=== PATIENT | female | born 1945 | race Caucasian/White ===

== ENCOUNTER 2017-02-01 14:57 | Observation (INO) | payer MEDICARE, OTHER ==
[~2017-02-01] VITALS: Ht 165.1 cm; Wt 89.0 kg
[2017-02-01] VITALS (8 sets, daily range): BP systolic 136–194; BP diastolic 66–89; PULSE 70–96; RESP 16–24; TEMP 98–98.4; O2SAT 95–98
[~2017-02-01 14:57] MED LIST: ALRE0.2S3 EACH EYE; ASPI81TA5 PO; AZEL0.05 EACH EYE; CALC1TAB34 PO; CLON0.5T PO; DETR2CAP PO; DETR2TAB PO; DOCU100T9 PO; EPIP0.3I IM; FEXO180T PO; FLUTI44I INH; HYDR200T3 PO; LEVO-168 PO; MECL-62 PO; MONT10TA2 PO; MONT10TA4 PO; OMEG1400 PO; OMNASPR2 EACH NARE; PROB1TAB PO; REST0.05 EACH EYE; ROSU5 PO; SPIRCAP INH; TELM1TAB2 PO; TIZA2TAB PO; VERA1CAP PO; XOPEAER4 INH; ZOSTINJ SQ
--- NOTE | 2017-02-01 15:28 | PD ---
HPI Chief Complaint: GI Complaint Time Seen by Provider: 15:27 Travel History International Travel<30 days: No Contact w/Intl Traveler<30days: No Traveled to known affect area: No History of Present Illness HPI 71 year-old female's history of CAD, hypertension, diabetes, lupus, peptic ulcer disease, IBS, presents to the department for evaluation of two episodes of venita red diarrhea. Patient states that she has history of IBS and does gap , pain and cramping sometimes. She has never been diagnosed with colitis or diverticulitis. She states that she felt like she had to go and when she had diarrhea and was veinta bloody red. She began to feel weak. She states she still feels weak. Denies any recent illnesses, fever, chills. Mild nausea. No urinary symptoms. No other symptoms to report. PFSH Past Medical History Arthritis: Yes Asthma: Yes (ENVIRONMENTAL) Autoimmune Disease: Yes (LUPUS) Heart Rhythm Problems: Yes (murmur) Cardiovascular Problems: Yes (HTN) High Cholesterol: Yes (controlled) Chest Pain: No Congestive Heart Failure: No Cerebrovascular Accident: No Fibromyalgia: Yes GERD: Yes Genitourinary: Yes (bilat renal bipsy) Hiatal Hernia: No Hypertension: Yes Kidney Stones: No Musculoskeletal: Yes (fibromyalgia) Neurologic: Yes Reproductive: No Respiratory: Yes (ASTHMA) Migraines: Yes (hx of, migraine free 10 years ago) Renal Failure: No Seizures: No Sleep Apnea: Yes (no cpap) Thyroid Disease: Yes Ulcer: Yes ?: Not Past Surgical History Abdominal Surgery: No Cardiac Surgery: No Ear Surgery: No Endocrine Surgery: No Eye Surgery: Yes (CATARACT) Genitourinary Surgery: Yes (RENAL BIOPSY) Gynecologic Surgery: No Oral Surgery: Yes (uvula removed, and sinus) Thoracic Surgery: No Tonsillectomy: Yes Other Surgery: Yes (DEVIATED SEPTUM) Social History Alcohol Use: No Tobacco Use: No Substance Use: No Allergies-Medications (Allergen,Severity, Reaction): Coded Allergies: adhesive (Unverified Allergy, Unknown, 02/01/17) codeine (Unverified Allergy, Unknown, 02/01/17) meperidine (Unverified Allergy, Unknown, 02/01/17) methylene blue (Unverified Allergy, Unknown, 02/01/17) morphine (Unverified Allergy, Unknown, 02/01/17) penicillin G (Unverified Allergy, Unknown, 02/01/17) povidone-iodine (Unverified Allergy, Unknown, 02/01/17) Reported Meds & Prescriptions Reported Meds & Active Scripts Active Verelan PM 24 HR (Verapamil HCl) 200 Mg Cap 200 Mg PO DAILY Omnaris Nasal (Ciclesonide Nasal) 50 Mcg/Act [place] 2 [place] EACH NARE DAILY 2 sprays into each nostril Crestor (Rosuvastatin Calcium) 5 Mg Tab 5 Mg PO DAILY Levothyroxine (Levothyroxine Sodium) 112 Mcg Tab 112 Mcg PO DAILY Alrex Opth Drops (Loteprednol Etabonate) 0.2 % Soln 1 Drop EACH EYE BID Detrol LA (Tolterodine Tartrate) 2 Mg Cap 2 Mg PO DAILY Telmisartan 80 Mg Tab 80 Mg PO DAILY Tizanidine (Tizanidine HCl) 2 Mg Tab 2 Mg PO HS PRN Meclizine (Meclizine HCl) 25 Mg Tab 25 Mg PO TID PRN Xopenex Hfa 15 GM Inh (Levalbuterol 15 GM Inh) 45 Mcg/Act Aer 45 Mcg INH Q6HR Shake well before using. (1 puff = 45 mcg) Flovent Hfa 10.6 GM Inh (Fluticasone Propionate) 44 Mcg/Act Inh 2 Puff INH BID Use daily at the same time. Clonazepam 0.5 Mg Tab 0.5 Mg PO DAILY PRN Reported Caltrate 600+D Plus Minerals (Calcium Carbonate-Vitamin D W/Minerals) 600-800 Mg -Unit Tab 1 Tab PO HS Aspirin DR (Aspirin) 81 Mg Tabdr 81 Mg PO DAILY Epipen 2-Tristan Inj (Epinephrine) 0.3 Mg/0.3 Ml Pfpen 0.3 Mg IM ONCE PRN Azelastine Opth Drops 0.05% Soln 1 Drop EACH EYE DAILY Singulair (Montelukast Sodium) 10 Mg Tab 10 Mg PO HS Spiriva Handihaler (Tiotropium Inh) 18 Mcg Cap 18 Mcg INH DAILY 1 capsule = 18 mcg Hydroxychloroquine (Hydroxychloroquine Sulfate) 200 Mg Tab 200 Mg PO BID Takw with food Probiotic (Probiotic Product) 1 Tab Tab 1 Tab PO DAILY [place]-3 1400 mg ([place]-3 Fatty Acids) 1 Cap Cap 1,400 Mg PO DAILY Fexofenadine (Fexofenadine HCl) 180 Mg Tab 180 Mg PO DAILY Docusate Sodium 100 Mg Tab 200 Mg PO DAILY Restasis Opth 0.05% (Cyclosporine Opth 0.05%) 0.05% Emul 1 Drop EACH EYE BID Review of Systems Except as stated in HPI: all other systems reviewed are Neg Physical Exam Narrative GENERAL: Well-nourished elderly female patient, in no acute distress SKIN: Focused skin assessment warm/dry. HEAD: Atraumatic. Normocephalic. EYES: Pupils equal and round. No scleral icterus. No injection or drainage. ENT: No nasal bleeding or discharge. Mucous membranes pink and moist. NECK: Trachea midline. No JVD. CARDIOVASCULAR: Tachycardic rate and rhythm. 2/6 systolic murmur appreciated. RESPIRATORY: No accessory muscle use. Clear to auscultation. Breath sounds equal bilaterally. GASTROINTESTINAL: Abdomen soft, nondistended. Tenderness to palpation across the lower abdomen. Greater on the left than right. Hepatic and splenic margins not palpable. MUSCULOSKELETAL: No obvious deformities. No clubbing. No cyanosis. No edema. NEUROLOGICAL: Awake and alert. No obvious cranial nerve deficits. Motor grossly within normal limits. Normal speech. PSYCHIATRIC: Appropriate mood and affect; insight and judgment normal. Data Data Last Documented VS Vital Signs Date Time Temp Pulse Resp B/P Pulse Ox O2 Delivery O2 Flow Rate FiO2 02/01/17 18:07 76 20 194/80 97 02/01/17 15:34 Room Air 02/01/17 15:00 98.4 Orders Complete Blood Count With Diff (02/01/17 15:34) Comprehensive Metabolic Panel (02/01/17 15:34) Prothrombin Time / Inr (Pt) (02/01/17 15:34) Act Partial Throm Time (Ptt) (02/01/17 15:34) Urinalysis - C+S If Indicated (02/01/17 15:34) Type And Screen (02/01/17 15:34) Chest, Single Ap (02/01/17 15:34) Ecg Monitoring (02/01/17 15:34) Iv Access Insert/Monitor (02/01/17 15:34) Oximetry (02/01/17 15:34) Pantoprazole Inj (Protonix Inj) (02/01/17 15:45) Sodium Chloride 0.9% Flush (Ns Flush) (02/01/17 15:45) Ct Abd/Pel W Iv Contrast(Rout) (02/01/17 ) Iohexol 350 Inj (Omnipaque 350 Inj) (02/01/17 17:00) Admit Order (Ed Use Only) (02/01/17 18:15) Labs Laboratory Tests Test 02/01/17 02/01/17 15:48 16:10 White Blood Count 13.2 TH/MM3 Red Blood Count 4.32 MIL/MM3 Hemoglobin 13.1 GM/DL Hematocrit 38.5 % Mean Corpuscular Volume 89.0 FL Mean Corpuscular Hemoglobin 30.2 PG Mean Corpuscular Hemoglobin 34.0 % Concent Red Cell Distribution Width 13.2 % Platelet Count 189 TH/MM3 Mean Platelet Volume 8.2 FL Neutrophils (%) (Auto) 84.6 % Lymphocytes (%) (Auto) 8.1 % Monocytes (%) (Auto) 6.6 % Eosinophils (%) (Auto) 0.4 % Basophils (%) (Auto) 0.3 % Neutrophils # (Auto) 11.1 TH/MM3 Lymphocytes # (Auto) 1.1 TH/MM3 Monocytes # (Auto) 0.9 TH/MM3 Eosinophils # (Auto) 0.1 TH/MM3 Basophils # (Auto) 0.0 TH/MM3 CBC Comment DIFF FINAL Differential Comment Prothrombin Time 10.3 SEC Prothromb Time International 0.9 RATIO Ratio Activated Partial 25.9 SEC Thromboplast Time Sodium Level 141 MEQ/L Potassium Level 4.3 MEQ/L Chloride Level 105 MEQ/L Carbon Dioxide Level 27.5 MEQ/L Anion Gap 9 MEQ/L Blood Urea Nitrogen 22 MG/DL Creatinine 1.08 MG/DL Estimat Glomerular Filtration 50 ML/MIN Rate Random Glucose 91 MG/DL Calcium Level 9.3 MG/DL Total Bilirubin 0.3 MG/DL Aspartate Amino Transf 15 U/L (AST/SGOT) Alanine Aminotransferase 22 U/L (ALT/SGPT) Alkaline Phosphatase 113 U/L Total Protein 7.0 GM/DL Albumin 3.4 GM/DL Blood Type B POSITIVE Antibody Screen NEGATIVE Urine Color YELLOW Urine Turbidity CLEAR Urine pH 5.5 Urine Specific [place] 1.017 Urine Protein TRACE mg/dL Urine Glucose (UA) NEG mg/dL Urine Ketones NEG mg/dL Urine Occult Blood SMALL Urine Nitrite NEG Urine Bilirubin NEG Urine Urobilinogen LESS THAN 2.0 MG/DL Urine Leukocyte Esterase TRACE Urine RBC 4 /hpf Urine WBC 6 /hpf Urine Squamous Epithelial <1 /hpf Cells Urine Mucus FEW /lpf Microscopic Urinalysis Comment CULT NOT INDICATED MDM Medical Decision Making Medical Screen Exam Complete: Yes Emergency Medical Condition: Yes Medical Record Reviewed: Yes Differential Diagnosis GI bleed versus colitis versus diverticulitis versus hypercoagulopathy Narrative Course 70 year-old female presents to emergency department for evaluation of venita red bloody diarrhea. Patient appears without distress. She states she does not feel well. She is slightly pallor. Elevated heart rate is noted. Patient does have an crit stool on examination. This is Hemoccult positive. Laboratory Tests Test 02/01/17 02/01/17 15:48 16:10 White Blood Count 13.2 TH/MM3 Red Blood Count 4.32 MIL/MM3 Hemoglobin 13.1 GM/DL Hematocrit 38.5 % Mean Corpuscular Volume 89.0 FL Mean Corpuscular Hemoglobin 30.2 PG Mean Corpuscular Hemoglobin 34.0 % Concent Red Cell Distribution Width 13.2 % Platelet Count 189 TH/MM3 Mean Platelet Volume 8.2 FL Neutrophils (%) (Auto) 84.6 % Lymphocytes (%) (Auto) 8.1 % Monocytes (%) (Auto) 6.6 % Eosinophils (%) (Auto) 0.4 % Basophils (%) (Auto) 0.3 % Neutrophils # (Auto) 11.1 TH/MM3 Lymphocytes # (Auto) 1.1 TH/MM3 Monocytes # (Auto) 0.9 TH/MM3 Eosinophils # (Auto) 0.1 TH/MM3 Basophils # (Auto) 0.0 TH/MM3 CBC Comment DIFF FINAL Differential Comment Prothrombin Time 10.3 SEC Prothromb Time International 0.9 RATIO Ratio Activated Partial 25.9 SEC Thromboplast Time Sodium Level 141 MEQ/L Potassium Level 4.3 MEQ/L Chloride Level 105 MEQ/L Carbon Dioxide Level 27.5 MEQ/L Anion Gap 9 MEQ/L Blood Urea Nitrogen 22 MG/DL Creatinine 1.08 MG/DL Estimat Glomerular Filtration 50 ML/MIN Rate Random Glucose 91 MG/DL Calcium Level 9.3 MG/DL Total Bilirubin 0.3 MG/DL Aspartate Amino Transf 15 U/L (AST/SGOT) Alanine Aminotransferase 22 U/L (ALT/SGPT) Alkaline Phosphatase 113 U/L Total Protein 7.0 GM/DL Albumin 3.4 GM/DL Blood Type B POSITIVE Antibody Screen NEGATIVE Urine Color YELLOW Urine Turbidity CLEAR Urine pH 5.5 Urine Specific [place] 1.017 Urine Protein TRACE mg/dL Urine Glucose (UA) NEG mg/dL Urine Ketones NEG mg/dL Urine Occult Blood SMALL Urine Nitrite NEG Urine Bilirubin NEG Urine Urobilinogen LESS THAN 2.0 MG/DL Urine Leukocyte Esterase TRACE Urine RBC 4 /hpf Urine WBC 6 /hpf Urine Squamous Epithelial <1 /hpf Cells Urine Mucus FEW /lpf Microscopic Urinalysis Comment CULT NOT INDICATED Lab work is without acute concern. After IV fluids, patient's heart rate has normalized. She still does not feel well. She feels weak. I feel it is in her best benefit to be admitted observation for serial H&H and further evaluation of these symptoms as rendered. Plan as discussed the patient. She is in agreement with this plan of care. Diagnosis Primary Impression: Hematochezia Admitting Information Admitting Physician Requests: Observation Condition: Stable Celi Pierson Feb 01, 2017 15:28
[2017-02-01] MEDS ORDERED: PANTOPRAZOLE SODIUM 40 MG VIAL IVP ONE (15:45)
[2017-02-01] MEDS ORDERED: SODIUM CHLORIDE 0.9% FLUSH 10 ML FLUSH IVF PRN (15:45)
[2017-02-01 16:05] LABS: AUTOMATED NEUTROPHIL # 11.1 TH/MM3 (1.8-7.7); BASOPHIL % 0.3 % (0.0-2.0); EOSINOPHIL # 0.1 TH/MM3 (0-0.4); EOSINOPHIL % 0.4 % (0.0-4.0); HEMATOCRIT 38.5 % (35.0-46.0); HEMO FLAGS DIFF FINAL; LYMPH % 8.1 % (9.0-44.0); LYMPHOCYTE # 1.1 TH/MM3 (1.0-4.8); MEAN CORPUSCULAR HEMOGLOBIN 30.2 PG (27.0-34.0); MONO % 6.6 % (0.0-8.0); NEUT % 84.6 % (16.0-70.0); PLATELET COUNT 189 TH/MM3 (150-450); RED BLOOD COUNT 4.32 MIL/MM3 (4.00-5.30); RED CELL DISTRIBUTION WIDTH 13.2 % (11.6-17.2); WHITE BLOOD COUNT 13.2 TH/MM3 (4.0-11.0)
--- NOTE | 2017-02-01 16:07 | RADRPT ---
EXAM DATE/TIME: 02/01/2017 15:56 [facility] COMPARISON: CHEST SINGLE AP, May 29, 2015, 16:11. INDICATIONS : Abdominal pain, diarrhea, weakness. MEDICAL HISTORY : Irritable bowel syndrome. Asthma SURGICAL HISTORY : None. ENCOUNTER: Initial ACUITY: 2 days PAIN SCORE: 0/10 LOCATION: Bilateral chest FINDINGS: A single view of the chest demonstrates the lungs to be symmetrically aerated without evidence of mas s, infiltrate or effusion. The cardiomediastinal contours are unremarkable. Osseous structures are intact. CONCLUSION: No acute disease. Raman Tracy Jr., MD on February 01, 2017 at 16:04 Board Certified Radiologist. This report was verified electronically.
[2017-02-01 16:17] LABS: APTT (PATIENT) 25.9 SEC (24.3-30.1); INTERNATIONAL NORMALIZED RATIO 0.9 RATIO; PROTHROMBIN TIME - PATIENT 10.3 SEC (9.8-11.6)
[2017-02-01 16:21] LABS: ALT (GPT) 22 U/L (10-53); ANION GAP 9 MEQ/L (5-15); AST (GOT) 15 U/L (15-37); BICARBONATE 27.5 MEQ/L (21.0-32.0); BLOOD UREA NITROGEN 22 MG/DL (7-18); CHLORIDE 105 MEQ/L (98-107); GLOMERULAR FILTRATION RATE 50 ML/MIN (>89); POTASSIUM 4.3 MEQ/L (3.5-5.1); SODIUM (NA) 141 MEQ/L (136-145)
[2017-02-01 16:23] LABS: ALKALINE PHOSPHATASE 113 U/L (45-117); TOTAL BILIRUBIN ADULT 0.3 MG/DL (0.2-1.0)
[2017-02-01] MEDS ORDERED: IOHEXOL 350 MG/ML 10 ML VIAL (for RAD DIAG) IV ONE (17:00)
--- NOTE | 2017-02-01 17:08 | RADRPT ---
EXAM DATE/TIME: 02/01/2017 16:52 [facility] COMPARISON: No previous studies available for comparison. INDICATIONS : Lower gi bleed. Pain across abdomen. IV CONTRAST: 95 cc Omnipaque 300 (iohexol) IV ORAL CONTRAST: No oral contrast ingested. RADIATION DOSE: 13.28 CTDIvol (mGy) MEDICAL HISTORY : Cardiovascular disease. Hypertension. Lupus.Diabetes,Liver disease. SURGICAL HISTORY : None. ENCOUNTER: Initial ACUITY: 1 day PAIN SCALE: 4/10 LOCATION: Bilateral abdominal. TECHNIQUE: Volumetric scanning of the abdomen and pelvis was performed. Using automated exposure control and ad justment of the mA and/or kV according to patient size, radiation dose was kept as low as reasonably achievable to obtain optimal diagnostic quality images. DICOM format image data is available electro nically for review and comparison. FINDINGS: LOWER LUNGS: The visualized lower lungs are clear. LIVER: Homogeneous density without lesion. There is no dilation of the biliary tree. No calcified gallston es. SPLEEN: Normal size without lesion. PANCREAS: Within normal limits. KIDNEYS: Normal in size and shape. There is no mass, stone or hydronephrosis. ADRENAL GLANDS: Within normal limits. VASCULAR: There is no aortic aneurysm. BOWEL/MESENTERY: Is mild gaseous distention in portions of the transverse colon with moderate amount of stool present. There is no focal wall thickening or inflammatory change. There is a normal appendix and terminal il eum appears unremarkable.. There is no free intraperitoneal air or fluid. ABDOMINAL WALL: Within normal limits. RETROPERITONEUM: There is no lymphadenopathy. BLADDER: No wall thickening or mass. REPRODUCTIVE: Within normal limits. INGUINAL: There is no lymphadenopathy or hernia. MUSCULOSKELETAL: Within normal limits for patient age. CONCLUSION: 1. Nonspecific, nonobstructive bowel gas pattern which may represent mild ileus. 2. Unremarkable gallbladder. 3. Mild hepatic steatosis. Mikael Lomeli MD on February 01, 2017 at 17:04 Board Certified Radiologist. This report was verified electronically.
[2017-02-01 17:11] LABS: BLOOD, URINE SMALL (NEG); COMMENT (UR) CULT NOT INDICATED; CULTURE IF INDICATED CULT NOT INDICATED; GLUCOSE,URINE NEG (NEG); KETONE, URINE NEG (NEG); MUCUS URINE FEW /lpf (OCC); NITRITE,URINE NEG (NEG); PH, URINE 5.5 (5.0-8.5); SQUAMOUS EPITHELIAL CELL URINE <1 /hpf (0-5); URINE COLOR YELLOW (YELLW/STRAW)
[2017-02-01] MEDS ORDERED: SODIUM CHLORIDE 0.9% FLUSH 10 ML FLUSH IV FLUSH PRN ×2 (18:45→20:30)
--- NOTE | 2017-02-01 19:42 | HHI.HP ---
[facility] Service Family Medicine Primary Care Physician Patsy Darnell MD Admission Diagnosis Acute hematachezia; Abdominal cramping Diagnoses: International Travel<30 Days: No Contact w/Intl Traveler<30days: No Known Affected Area: No History of Present Illness Mrs. Ware is a 71-year-old female with a extensive past medical history presenting to the emergency department after one episode of bright red blood per rectum. She reports that she has been previously diagnosed with irritable bowel syndrome, diarrhea type, that "flared up" this morning around 0330. She states that the cramps associated with the diarrhea or so severe that she felt like she was going to "black out." She states that the abdominal pain is very sharp in nature located primarily in the lower 2 quadrants and scores the pain and 8/10 the pain scale. Over the course of the morning she had 3 total episodes of diarrhea ranging from initially semisolid to the last episode with all liquid diarrhea. Shortly after the last episode at around 1430 she had one episode of medium thickness bright red blood per rectum that covered the entire toilet measuring approximately a cup per patient report. She also states that there were a "couple of blood clots." Since that time she became dizzy and was off balance. She has not been able to tolerate a diet today as she also endorses nausea. She reports no sick contacts at this time. She takes a daily aspirin, however she takes no other anticoagulants. She has been told she has a small internal hemorrhoid that she reports does not bother her. She is also urinary incontinent at baseline and is required to wear briefs at most times. Otherwise she has no complaints and denies any fevers, chills, shortness of breath, chest pain, or calf tenderness. (Eugenio Storey MD R2) Review of Systems Constitutional: COMPLAINS OF: Dizziness, DENIES: Fever Eyes: DENIES: Blurred vision, Double Vision Ears, nose, mouth, throat: COMPLAINS OF: Running Nose, DENIES: Throat pain Respiratory: DENIES: Cough, Shortness of breath Cardiovascular: DENIES: Chest pain, Lower Extremity Edema Gastrointestinal: COMPLAINS OF: Abdominal pain, Bloody stools, Diarrhea, Nausea , DENIES: Constipation, Vomiting Genitourinary: DENIES: Abnormal vaginal bleeding, Dysuria Musculoskeletal: COMPLAINS OF: Joint pain Integumentary: DENIES: Rash Hematologic/lymphatic: DENIES: Lymphadenopathy Neurologic: DENIES: Headache Psychiatric: DENIES: Mood changes (Eugenio Storey MD R2) Past Family Social History Past Medical History Lupus with nephritis Fibromyalgia Osteoarthritis Irritable Bowel Syndrome Heart Murmur HTN Prediabetic Asthma Retinal Detachment Past Surgical History Sleep Apnea Surgery Deviated Septum Kidney biopsy BL Tonsillectomy Cataract (Eugenio Storey MD R2) Allergies: Coded Allergies: adhesive (Unverified Allergy, Unknown, 02/01/17) codeine (Unverified Allergy, Unknown, 02/01/17) meperidine (Unverified Allergy, Unknown, 02/01/17) methylene blue (Unverified Allergy, Unknown, 02/01/17) morphine (Unverified Allergy, Unknown, 02/01/17) penicillin G (Unverified Allergy, Unknown, 02/01/17) povidone-iodine (Unverified Allergy, Unknown, 02/01/17) Family History Father - from lung cancer Mother - from GI cancer, HTN, Hypothyroid Brother - lymphoma Sister - MS Sister - allergies Son - Health Social History Lives at home with in [place]. Previously on disability, now on SS. Tobacco - denies history Alcohol - denies history Illicit Drug - denies history (Eugenio Storey MD R2) Physical Exam Vital Signs Vital Signs Date Time Temp Pulse Resp B/P Pulse Ox O2 Delivery O2 Flow Rate FiO2 02/01/17 19:17 70 20 176/70 98 Room Air 02/01/17 18:07 76 20 194/80 97 02/01/17 15:45 24 98 02/01/17 15:34 86 24 184/88 97 Room Air 02/01/17 15:29 20 02/01/17 15:00 98.4 96 16 194/89 98 Physical Exam GENERAL: Well-nourished, well-developed elderly female lying in bed in mild distress. SKIN: Warm and dry. No rash. Patient appears pale. HEENT: Atraumatic, normocephalic with EOMI. PERRLA. Mucous membranes dry. Oropharynx clear without erythema or exudate. Bilateral eyes mildly sunken. No LAD, JVD, or thyroid abnormality appreciated. CARDIOVASCULAR: Regular rate and rhythm without obvious murmurs, gallops, or rubs. RESPIRATORY: Clear to auscultation bilaterally with no CRW. No increased work of breathing. GASTROINTESTINAL: Abdomen soft, nondistended with tenderness diffusely in all 4 quadrants. Pain to palpation is primarily focused in the lower 2 quadrants. Hyperactive bowel sounds in all 4 quadrants. No masses or hepatosplenomegaly appreciated. MUSCULOSKELETAL: No cyanosis or edema. Strength grossly WNL. UG: Rectum with erythema and irritation at the anus. Upon examination 1 small internal hemorrhoid appreciated without visualized bleeding. Hemoccult positive per ER staff. BACK: Nontender without obvious deformity. No CVA tenderness. NEURO/PSYCH: Afocal. Awake, alert, and oriented x3. Normal judgment and speech. Normal interaction with examiner Laboratory Laboratory Tests Test 02/01/17 02/01/17 15:48 16:10 White Blood Count 13.2 Red Blood Count 4.32 Hemoglobin 13.1 Hematocrit 38.5 Mean Corpuscular Volume 89.0 Mean Corpuscular Hemoglobin 30.2 Mean Corpuscular Hemoglobin 34.0 Concent Red Cell Distribution Width 13.2 Platelet Count 189 Mean Platelet Volume 8.2 Neutrophils (%) (Auto) 84.6 Lymphocytes (%) (Auto) 8.1 Monocytes (%) (Auto) 6.6 Eosinophils (%) (Auto) 0.4 Basophils (%) (Auto) 0.3 Neutrophils # (Auto) 11.1 Lymphocytes # (Auto) 1.1 Monocytes # (Auto) 0.9 Eosinophils # (Auto) 0.1 Basophils # (Auto) 0.0 CBC Comment DIFF FINAL Differential Comment Prothrombin Time 10.3 Prothromb Time International 0.9 Ratio Activated Partial 25.9 Thromboplast Time Sodium Level 141 Potassium Level 4.3 Chloride Level 105 Carbon Dioxide Level 27.5 Anion Gap 9 Blood Urea Nitrogen 22 Creatinine 1.08 Estimat Glomerular Filtration 50 Rate Random Glucose 91 Calcium Level 9.3 Total Bilirubin 0.3 Aspartate Amino Transf 15 (AST/SGOT) Alanine Aminotransferase 22 (ALT/SGPT) Alkaline Phosphatase 113 Total Protein 7.0 Albumin 3.4 Blood Type B POSITIVE Antibody Screen NEGATIVE Urine Color YELLOW Urine Turbidity CLEAR Urine pH 5.5 Urine Specific [place] 1.017 Urine Protein TRACE Urine Glucose (UA) NEG Urine Ketones NEG Urine Occult Blood SMALL Urine Nitrite NEG Urine Bilirubin NEG Urine Urobilinogen LESS THAN 2.0 Urine Leukocyte Esterase TRACE Urine RBC 4 Urine WBC 6 Urine Squamous Epithelial <1 Cells Urine Mucus FEW Microscopic Urinalysis Comment CULT NOT INDICATED (Eugenio Storey MD R2) Result Diagram: 02/01/17 1548 02/01/17 1548 Assessment and Plan Assessment and Plan Mrs. Ware is a 71-year-old female with a extensive past medical history presenting to the emergency department after one episode of bright red blood per rectum. Code Status Full Code Discussed Condition With Mrs. Pierson, ER PA (Eugenio Storey MD R2) Attending Attestation Patient seen and examined. Case reviewed and discussed Please refer to resident H&P for further details regarding HPI, ROS, PMH, SurgHx , Fh and SocHx In summary, patient is a 71yoF presenting with abdominal pain and BRBPR She is seen in her hospital bed, denies further bleeding overnight c/o pain over lower abdomen GENERAL: wdwn female, NAD resting in bed SKIN: Warm and dry. No rashes HEAD: Normocephalic. AT EYES: No scleral icterus. No injection or drainage. ENT: OP clear. MM slightly dry NECK: Supple, trachea midline. No JVD or lymphadenopathy. CARDIOVASCULAR: Regular rate and rhythm with 3/6 AIDA, no audible gallops or rubs. RESPIRATORY: Breath sounds equal and clear bilaterally. No accessory muscle use. GASTROINTESTINAL: Abdomen soft, nondistended. TTP over suprapubic and bilateral lower quadrants, no rebound, no guarding MUSCULOSKELETAL: No cyanosis, or edema. No calf tenderness BACK: Nontender without obvious deformity. No CVA tenderness. NEURO: Awake and alert. Normal speech. MAEW. CN gorossly intact. A/P: 71yoF admitted with: Hematochezia Abdominal pain FH colon or anal CA SLE with Lupus nephritis Fibromyalgia Osteoarthritis Irritable Bowel Syndrome, diarrhea predominant Heart Murmur Prediabetic Asthma Retinal Detachment Colon polyps GERD- omeprazole Hx RONY Aortic stenosis HTN NPO GI consultation Serial hgb Protonix Resume home meds as appropriate Monitor for bleeding Chemical DVT proph contraindicated due to bleeding Patient seen and examined. Case reviewed and discussed Agree with plan of care as discussed with me and documented in the resident note. (Debbie Riggins MD) Problem List: (1) Hematochezia Status: Acute Plan: Patient with IBS presenting with 3 episodes of liquid diarrhea and 1 episode of bright red blood per rectum Abdomen and pelvis CT: Nonspecific, nonobstructive bowel gas pattern which may represent mild ileus. Unremarkable gallbladder. Mild hepatic steatosis. CBC: WBC 13.2, H/H 13.1/38.5, platelets 189 Serial H/H every 6 hours pending BMP: Creatinine 1.08, BUN 22, otherwise within normal limits Nothing by mouth except for medications Defer stool studies at this time as patient denies sick contacts, has remained afebrile, patient does not meet sepsis criteria, and stool has semisolid quality Consult gastroenterology for possible colonoscopy, appreciate recommendations Medications: Protonix 40 mg IV twice a day Zofran 4 mg IV every 6 hours when necessary for nausea/vomiting Normal saline at 125 mL per hour (2) Diarrhea Status: Acute Plan: Please see plan as above (3) GERD (gastroesophageal reflux disease) Status: Chronic Plan: Patient with history of gastroesophageal reflux disease Protonix 40 mg IV twice a day (4) Hypertension Status: Chronic Plan: Patient with chronic hypertension Continue home losartan Clonidine 0.1 mg every 6 hours when necessary for blood pressure greater than 180/100 (5) Asthma Status: Chronic Plan: Patient with history of asthma and allergies Continue home Singulair, loratadine, and fluticasone Albuterol when necessary for shortness of breath (6) Hypothyroid Status: Chronic Plan: Patient with history of hypothyroidism Continue home levothyroxine 112 g daily (7) Lupus (systemic lupus erythematosus) Status: Chronic Plan: Patient with history of lupus Continue hydroxychloroquine 200 mg twice a day (8) Fibromyalgia Status: Chronic Plan: Patient with a history of fibromyalgia Continue home Zanaflex (9) Nutrition, metabolism, and development symptoms Status: Acute Plan: Diet: Nothing by mouth except for medications Electrolytes: Within normal limits, continue to monitor Fluids: Normal saline at 129 mL per hour (10) Contraindication to deep vein thrombosis (DVT) prophylaxis Status: Acute Plan: Defer pharmacological DVT prophylaxis as this time due to episode of bright red blood per rectum SCD/TEDs (Eugenio Storey MD R2) Problem Qualifiers (1) GERD (gastroesophageal reflux disease): Qualified Code: K21.9 - Gastroesophageal reflux disease without esophagitis Eugenio Storey MD R2 Feb 01, 2017 19:42 Debbie Riggins MD Feb 02, 2017 16:12
[2017-02-01] MEDS ORDERED: MECLIZINE HCL 25 MG TAB PO PRN (20:15)
[2017-02-01] MEDS ORDERED: clonazePAM 0.5 MG TAB PO PRN (20:15)
[2017-02-01] MEDS ORDERED: ONDANSETRON HCL 4 MG/2 ML VIAL IV PRN (20:30)
[2017-02-01] MEDS ORDERED: Cyclosporine Opth 0.05% (Restasis Opth 0.05%) 1 DROP EACH EYE SCH (21:00)
[2017-02-01] MEDS: SODIUM CHLORIDE 0.9% FLUSH 10 ML FLUSH IV FLUSH SCH (21:00)
[2017-02-01] MEDS: HYDROXYCHLOROQUINE SULFATE 200 MG TAB PO SCH (21:00)
[2017-02-01] MEDS: PANTOPRAZOLE SODIUM 40 MG VIAL IV SCH (21:00)
[2017-02-01] MEDS ORDERED: SODIUM CHLORIDE 0.9% FLUSH 10 ML FLUSH IV FLUSH SCH (21:00)
[2017-02-01] MEDS: MONTELUKAST SODIUM 10 MG TAB PO SCH (21:00)
[2017-02-01] MEDS: CALCIUM/VITAMIN D 250 MG/125 U TAB PO SCH (21:00)
[2017-02-01] MEDS: cloNIDine HCL 0.1 MG TAB PO PRN (21:03)
[2017-02-01] MEDS: SODIUM CHLOR 0.9% 1000 ML INJ 1,000 ML IV SCH (21:09)
[2017-02-02] VITALS (7 sets, daily range): BP systolic 127–158; BP diastolic 61–76; PULSE 60–78; RESP 17–20; TEMP 97.5–98.2; O2SAT 95–98
[2017-02-02 03:54] LABS: AUTOMATED NEUTROPHIL # 6.7 TH/MM3 (1.8-7.7); BASOPHIL % 0.5 % (0.0-2.0); EOSINOPHIL # 0.1 TH/MM3 (0-0.4); EOSINOPHIL % 0.9 % (0.0-4.0); HEMATOCRIT 36.5 % (35.0-46.0); HEMO FLAGS DIFF FINAL; LYMPH % 16.9 % (9.0-44.0); LYMPHOCYTE # 1.6 TH/MM3 (1.0-4.8); MEAN CELL VOLUME 90.5 FL (80.0-100.0); MEAN CORPUSCULAR HEMOGLOBIN 29.1 PG (27.0-34.0); MEAN CORPUSCULAR HGB CONC 32.2 % (32.0-36.0); MONO % 9.4 % (0.0-8.0); NEUT % 72.3 % (16.0-70.0); PLATELET COUNT 176 TH/MM3 (150-450); RED BLOOD COUNT 4.04 MIL/MM3 (4.00-5.30); RED CELL DISTRIBUTION WIDTH 13.3 % (11.6-17.2); WHITE BLOOD COUNT 9.2 TH/MM3 (4.0-11.0)
[2017-02-02] MEDS: SODIUM CHLOR 0.9% 1000 ML INJ 1,000 ML IV SCH ×3 (04:02→19:34)
[2017-02-02] MEDS: LEVOTHYROXINE SODIUM 112 MCG TAB PO SCH (06:00)
--- NOTE | 2017-02-02 06:19 | HHI.FPPN ---
Subjective Remarks Patient reports that on Saturday at 0330 she had diffuse cramping abdominal pain, followed by several bouts of diarrhea. Her BMs eventually became gross bloody and soaking through the toilet. This is new for her. She denies NSAIDs, new medications (except for Plaquenil), dark tarry stools, fevers, chills, sick contacts, chest pain, SOB, palpitations, headaches. Denies feeling lightheaded currently. Denies any foul tasting foods. (Mann Forman MD, R3) Objective Vitals Vital Signs Date Time Temp Pulse Resp B/P Pulse Ox O2 Delivery O2 Flow Rate FiO2 02/02/17 03:34 97.9 72 17 130/62 96 02/02/17 01:23 98.0 73 17 127/61 95 02/01/17 21:57 98.0 74 18 136/66 95 02/01/17 21:26 74 20 170/71 97 Room Air 02/01/17 20:41 184/74 02/01/17 19:17 70 20 176/70 98 Room Air 02/01/17 18:07 76 20 194/80 97 02/01/17 15:45 24 98 02/01/17 15:34 86 24 184/88 97 Room Air 02/01/17 15:29 20 02/01/17 15:00 98.4 96 16 194/89 98 (Mann Forman MD, R3) Result Diagram: 02/02/17 0322 02/02/17 0322 Imaging Last 72 hours Impressions Chest X-Ray 02/01/17 1534 Signed Impressions: Service Date/Time: Wednesday, February 01, 2017 15:56 - CONCLUSION: No acute disease. Raman Tracy Jr., MD Abdomen/Pelvis CT 02/01/17 0000 Signed Impressions: Service Date/Time: Wednesday, February 01, 2017 16:52 - CONCLUSION: 1. Nonspecific , nonobstructive bowel gas pattern which may represent mild ileus. 2. Unremarkable gallbladder. 3. Mild hepatic steatosis. Mikael Lomeli MD Objective Remarks GEN: NAD resting HEENT: PERRL, throat without erythema or exudates, uvula midline RESP: CTAB CV: 3/6 AIDA at left sternal border, pulses equal EXT: No calf tenderness, 5/5 strength throughout ABD: ND TTP in suprapubic area. BS hypoactive. (Mann Forman MD, R3) A/P Assessment and Plan 71 y/o female with PMHx of external hemorrhoids, IBS, RA, aortic stenosis, COPD , presenting with bright red blood in her stools since Thursday 02/01 at 0330. Hgb on admission was 13.1 --> 11.7 within 12 hours. (Mann Forman MD, R3) Attending Attestation Patient seen and examined. Case reviewed and discussed Agree with plan of care as discussed with me and documented in the resident note. Appreciate GI recs CLD today, NPO after MN for scope tomorrow. (Debbie Riggins MD) Problem List: (1) Hematochezia Status: Acute Plan: IV PPI 40 mg BID IVF at 130 ml/hr Monitor vitals q 4 hours Serial H&H Consult GI we appreciate their recommendations Stool studies including c diff (2) Fibromyalgia Status: Chronic Plan: Continue home medications (3) GERD (gastroesophageal reflux disease) Status: Chronic Plan: PPI as above. (4) Hypertension Status: Chronic Plan: BP 130/62 this AM. Cont with clonidine BP > 180 Losartan 100 mg daily. (5) Asthma Status: Chronic Plan: Continue singulair albuterol nebs q 2 hrs prn sob Flovent 2 puffs bid (6) Hypothyroid Status: Chronic Plan: TSH in 10/2015 was 1.74 - continue with home levothyroxine Recheck TSH (7) Lupus (systemic lupus erythematosus) Status: Chronic Plan: Continue with Plaquenil May be better alternative medication if having persistent diarrhea / GI distress (8) Nutrition, metabolism, and development symptoms Status: Acute Plan: Diet: NPO after midnight for possible colonoscopy / scope IVF: as above Pain: Well controlled. DVT ppx: Contraindicated 2/2 GI bleed GI ppx: as above wdw Dr. Riggins. will follow up GI recs. (Mann Forman MD, R3) Problem Qualifiers (1) GERD (gastroesophageal reflux disease): Qualified Code: K21.9 - Gastroesophageal reflux disease without esophagitis Mann Forman MD, R3 Feb 02, 2017 06:19 Debbie Riggins MD Feb 02, 2017 15:59
[2017-02-02] MEDS ORDERED: RESP: ALBUTEROL 2.5 MG/3 ML NEB (PRN) INH (06:45)
[2017-02-02] MEDS: FLUTICASONE PROPIONATE 44 MCG/ACT 10.6 GM INHALER INH SCH ×3 (07:19→21:36)
[2017-02-02] MEDS ORDERED: AZELASTINE EACH EYE SCH (09:00)
--- NOTE | 2017-02-02 09:21 | PD.CONS ---
HPI History of Present Illness This is a 71 year old with a history of irritable bowel syndrome, diarrhea predominant. She does not take any medications for this on a regular basis. She began having some mild lower abdominal cramping, consistent with her prior episodes of irritable bowel syndrome. She had roasted turkey, stuffing, and mashed potatoes for dinner because she can usually tolerate this when she is having her "stomach issues." She went to bed and woke up early Conor morning with severe lower abdominal cramping and the urge to move her bowels. She reports that she had several episodes of loose stool. She went back to bed and then had the sudden urge to move her bowels again around 3:30 am, but when she went to the restroom, she noticed that she passed a large amount of red blood mixed with blood clots. She only had the one episode and has not had any further episodes of bleeding or diarrhea. She has never had GI bleeding in the past. She has associated severe lower abdominal cramping that seemed to improve after having bowel movements, but not completely resolve. She has nausea without vomiting. Last night, she felt dizzy after the episode of bleeding, but states she sat down before she passed out. Prior to this episode , her appetite has been good. She has been losing a few lbs a week, but with diet and activity. She has GERD, which is well controlled with omeprazole. She denies any recent travel, suspicious food, sick contacts, or recent antibiotics. Her last EGD/Colonoscopy was about 5 years ago in [place]. She did have benign polyps on her last colonoscopy. Her mother from either anal or colon cancer. (Blossom Marin) PFSH Past Medical History Lupus with nephritis Fibromyalgia Osteoarthritis Irritable Bowel Syndrome, diarrhea predominant Heart Murmur HTN Prediabetic Asthma Retinal Detachment Colon polyps GERD- omeprazole Hx RONY Aortic stenosis Past Surgical History Sleep Apnea Surgery Deviated Septum Kidney biopsy Tonsillectomy Cataract EGD/Colonoscopy (Blossom Marin) Coded Allergies: adhesive (Unverified Allergy, Unknown, 02/01/17) codeine (Unverified Allergy, Unknown, 02/01/17) meperidine (Unverified Allergy, Unknown, 02/01/17) methylene blue (Unverified Allergy, Unknown, 02/01/17) morphine (Unverified Allergy, Unknown, 02/01/17) penicillin G (Unverified Allergy, Unknown, 02/01/17) povidone-iodine (Unverified Allergy, Unknown, 02/01/17) Medications Allergies Coded Allergies Type Severity Reaction Last Updated Verified adhesive Allergy Unknown 02/01/17 No codeine Allergy Unknown 02/01/17 No meperidine Allergy Unknown 02/01/17 No methylene blue Allergy Unknown 02/01/17 No morphine Allergy Unknown 02/01/17 No penicillin G Allergy Unknown 02/01/17 No povidone-iodine Allergy Unknown 02/01/17 No Active Scripts Medications Dose Route/Sig Days Date Category Dose Instructions Verelan PM 24 HR (Verapamil HCl) 200 Mg Cap 200 Mg PO DAILY 01/29/17 Rx Omnaris Nasal (Ciclesonide Nasal) 50 Mcg/Act [place] 2 [place] EACH NARE DAILY 01/29/17 Rx 2 sprays into each nostril Crestor (Rosuvastatin Calcium) 5 Mg Tab 5 Mg PO DAILY 01/29/17 Rx Levothyroxine (Levothyroxine Sodium) 112 Mcg Tab 112 Mcg PO DAILY 01/29/17 Rx Caltrate 600+D Plus Minerals (Calcium Carbonate-Vitamin D W/Minerals) 600-800 Mg-Unit Tab 1 Tab PO HS 12/03/[address] (Aspirin) 81 Mg Tabdr 81 Mg PO DAILY 12/03/16 Reported Alrex Opth Drops (Loteprednol Etabonate) 0.2 % Soln 1 Drop EACH EYE BID 11/13/16 Rx Detrol LA (Tolterodine Tartrate) 2 Mg Cap 2 Mg PO DAILY 11/13/16 Rx Telmisartan 80 Mg Tab 80 Mg PO DAILY 10/27/16 Rx Tizanidine (Tizanidine HCl) 2 Mg Tab 2 Mg PO HS PRN 10/27/16 Rx Epipen 2-Tristan Inj (Epinephrine) 0.3 Mg/0.3 Ml Pfpen 0.3 Mg IM ONCE PRN 10/23/16 Reported Azelastine Opth Drops 0.05% Soln 1 Drop EACH EYE DAILY 10/23/16 Reported Singulair (Montelukast Sodium) 10 Mg Tab 10 Mg PO HS 10/23/16 Reported Spiriva Handihaler (Tiotropium Inh) 18 Mcg Cap 18 Mcg INH DAILY 10/23/16 Reported 1 capsule = 18 mcg Hydroxychloroquine (Hydroxychloroquine Sulfate) 200 Mg Tab 200 Mg PO BID 10/15/16 Reported Takw with food Meclizine (Meclizine HCl) 25 Mg Tab 25 Mg PO TID PRN 10/15/16 Rx Xopenex Hfa 15 GM Inh (Levalbuterol 15 GM Inh) 45 Mcg/Act Aer 45 Mcg INH Q6HR 05/01/16 Rx Shake well before using. (1 puff = 45 mcg) Flovent Hfa 10.6 GM Inh (Fluticasone Propionate) 44 Mcg/Act Inh 2 Puff INH BID 05/01/16 Rx Use daily at the same time. Clonazepam 0.5 Mg Tab 0.5 Mg PO DAILY PRN 05/01/16 Rx Probiotic (Probiotic Product) 1 Tab Tab 1 Tab PO DAILY 04/30/16 Reported [place]-3 1400 mg ([place]-3 Fatty Acids) 1 Cap Cap 1,400 Mg PO DAILY 04/30/16 Reported Fexofenadine (Fexofenadine HCl) 180 Mg Tab 180 Mg PO DAILY 04/30/16 Reported Docusate Sodium 100 Mg Tab 200 Mg PO DAILY 04/30/16 Reported Restasis Opth 0.05% (Cyclosporine Opth 0.05%) 0.05% Emul 1 Drop EACH EYE BID 04/30/16 Reported Family History Father from lung cancer Mother from either anal or colon cancer, HTN, Hypothyroid Brother lymphoma Sister MS Social History Denies tobacco, etoh, or illicit drug use (Blossom Marin) Review of Systems Constitutional: COMPLAINS OF: Diaphoretic episodes, Fatigue, Weight loss ( planned), Dizziness, DENIES: Fever, Chills, Change in appetite Respiratory: DENIES: Cough Cardiovascular: DENIES: Chest pain Gastrointestinal: COMPLAINS OF: Abdominal pain, Bloody stools, Diarrhea, Nausea , Heartburn, DENIES: Black stools, Constipation, Vomiting, Swelling of Abdomen , Hematemesis Genitourinary: COMPLAINS OF: Urinary incontinence, Hematuria (microscopic) Musculoskeletal: COMPLAINS OF: Joint pain Integumentary: DENIES: Abnormal pigmentation Neurologic: DENIES: Headache Psychiatric: DENIES: Confusion (Blossom Marin) GI Exam Vitals I&O Vital Signs Date Time Temp Pulse Resp B/P Pulse Ox O2 Delivery O2 Flow Rate FiO2 02/02/17 08:24 98.0 68 18 125/60 96 129/69 129/69 02/02/17 06:20 21 02/02/17 03:34 97.9 72 17 130/62 96 02/02/17 01:23 98.0 73 17 127/61 95 02/01/17 21:57 98.0 74 18 136/66 95 02/01/17 21:26 74 20 170/71 97 Room Air 02/01/17 20:41 184/74 02/01/17 19:17 70 20 176/70 98 Room Air 02/01/17 18:07 76 20 194/80 97 02/01/17 15:45 24 98 02/01/17 15:34 86 24 184/88 97 Room Air 02/01/17 15:29 20 02/01/17 15:00 98.4 96 16 194/89 98 Imaging Last Impressions Chest X-Ray 02/01/17 1534 Signed Impressions: Service Date/Time: Wednesday, February 01, 2017 15:56 - CONCLUSION: No acute disease. Raman Tracy Jr., MD Abdomen/Pelvis CT 02/01/17 0000 Signed Impressions: Service Date/Time: Wednesday, February 01, 2017 16:52 - CONCLUSION: 1. Nonspecific , nonobstructive bowel gas pattern which may represent mild ileus. 2. Unremarkable gallbladder. 3. Mild hepatic steatosis. Mikael Lomeli MD Laboratory Test 02/01/17 02/01/17 02/02/17 15:48 16:10 03:22 White Blood Count 13.2 TH/MM3 9.2 TH/MM3 Red Blood Count 4.32 MIL/MM3 4.04 MIL/MM3 Hemoglobin 13.1 GM/DL 11.7 GM/DL Hematocrit 38.5 % 36.5 % Mean Corpuscular Volume 89.0 FL 90.5 FL Mean Corpuscular Hemoglobin 30.2 PG 29.1 PG Mean Corpuscular Hemoglobin 34.0 % 32.2 % Concent Red Cell Distribution Width 13.2 % 13.3 % Platelet Count 189 TH/MM3 176 TH/MM3 Mean Platelet Volume 8.2 FL 7.8 FL Neutrophils (%) (Auto) 84.6 % 72.3 % Lymphocytes (%) (Auto) 8.1 % 16.9 % Monocytes (%) (Auto) 6.6 % 9.4 % Eosinophils (%) (Auto) 0.4 % 0.9 % Basophils (%) (Auto) 0.3 % 0.5 % Neutrophils # (Auto) 11.1 TH/MM3 6.7 TH/MM3 Lymphocytes # (Auto) 1.1 TH/MM3 1.6 TH/MM3 Monocytes # (Auto) 0.9 TH/MM3 0.9 TH/MM3 Eosinophils # (Auto) 0.1 TH/MM3 0.1 TH/MM3 Basophils # (Auto) 0.0 TH/MM3 0.0 TH/MM3 CBC Comment DIFF FINAL DIFF FINAL Differential Comment Prothrombin Time 10.3 SEC Prothromb Time International 0.9 RATIO Ratio Activated Partial 25.9 SEC Thromboplast Time Sodium Level 141 MEQ/L 144 MEQ/L Potassium Level 4.3 MEQ/L 4.0 MEQ/L Chloride Level 105 MEQ/L 110 MEQ/L Carbon Dioxide Level 27.5 MEQ/L 28.0 MEQ/L Anion Gap 9 MEQ/L 6 MEQ/L Blood Urea Nitrogen 22 MG/DL 17 MG/DL Creatinine 1.08 MG/DL 0.90 MG/DL Estimat Glomerular Filtration 50 ML/MIN 62 ML/MIN Rate Random Glucose 91 MG/DL 100 MG/DL Calcium Level 9.3 MG/DL 8.9 MG/DL Total Bilirubin 0.3 MG/DL Aspartate Amino Transf 15 U/L (AST/SGOT) Alanine Aminotransferase 22 U/L (ALT/SGPT) Alkaline Phosphatase 113 U/L Total Protein 7.0 GM/DL Albumin 3.4 GM/DL Blood Type B POSITIVE Antibody Screen NEGATIVE Urine Color YELLOW Urine Turbidity CLEAR Urine pH 5.5 Urine Specific [place] 1.017 Urine Protein TRACE mg/dL Urine Glucose (UA) NEG mg/dL Urine Ketones NEG mg/dL Urine Occult Blood SMALL Urine Nitrite NEG Urine Bilirubin NEG Urine Urobilinogen LESS THAN 2.0 MG/DL Urine Leukocyte Esterase TRACE Urine RBC 4 /hpf Urine WBC 6 /hpf Urine Squamous Epithelial <1 /hpf Cells Urine Mucus FEW /lpf Microscopic Urinalysis Comment CULT NOT INDICATED Physical Examination HEENT: Normocephalic; atraumatic; no jaundice. CHEST: CTA CARDIAC: RRR, Systolic heart murmur ABDOMEN: Soft, nondistended, mild lower abdominal tenderness; no hepatosplenomegaly; bowel sounds are present in all four quadrants. EXTREMITIES: No clubbing, cyanosis, or edema. SKIN: Normal; no rash; no jaundice. SOFTWARE QA MANAGER: No focal deficits; alert and oriented times three. (Blossom Marin) Assessment and Plan Plan ASSESSMENT: - Rectal bleeding. Pt woke up with severe lower abdominal cramping and diarrhea consistent with her IBS flares. After several episodes had one episode of passing large amount of red blood mixed with blood clots yest. at 330pm. No further episodes. No recent travel, suspicious food, sick contacts. Last egd/colonoscopy 5 years ago in [place], GERD and benign polyps. Mother from either anal or colon cancer. HH 11.7/36.5. States she cannot have colonoscopy Saturday, as she has to take her to MT appointment in [place]. Will prep today for egd/colonoscopy tomorrow. - Abdominal pain. Abdomen/Pelvis CT (02/01/17)----> 1. Nonspecific, nonobstructive bowel gas pattern which may represent mild ileus. 2. Unremarkable gallbladder. 3. Mild hepatic steatosis. Improved, but still having lower abdominal cramping. - Diarrhea with hx of IBS-D. Had several episodes of loose stool, followed by one episode of large amount of blood mixed with blood clots yesterday afternoon. - GERD. PPI - Leukocytosis, mild, improved. WBC now 9.2 - SUNDAY, improved. Does have underlying lupus nephritis - HTN, Asthma, Lupus, Hypothyroidism, Fibromyalgia per attending. PLAN: - Plan for egd/colonoscopy in am - Obtain consents - Clear liquids - NPO after MN - Golytely prep - Cont. PPI - Add Bentyl - Stool studies - CBC, BMP in am - Supportive care - Further recommendations to follow based on results of above - PT seen and examined by Dr. Cole and myself and this note is written on his behalf (Blossom Marin) Physician Comments Seen and examined, plan as above. Risk, benefits and possible complications explained to the patient, will proceed with bowel prep for tomorrow.. Further recommendations to follow. (Ye Cole MD) Blossom Marin Feb 02, 2017 09:21 Ye Cole MD Feb 02, 2017 11:48
[2017-02-02] MEDS: PANTOPRAZOLE SODIUM 40 MG VIAL IV SCH ×2 (10:11→21:36)
[2017-02-02] MEDS: LOSARTAN 50 MG TAB PO SCH (10:12)
[2017-02-02] MEDS: LORATADINE 10 MG TAB PO SCH (10:12)
[2017-02-02] MEDS: SODIUM CHLORIDE 0.9% FLUSH 10 ML FLUSH IV FLUSH SCH ×2 (10:12→21:38)
[2017-02-02] MEDS: ATORVASTATIN 10 MG TAB PO SCH (10:13)
[2017-02-02] MEDS: HYDROXYCHLOROQUINE SULFATE 200 MG TAB PO SCH ×2 (10:13→21:38)
[2017-02-02] MEDS: DICYCLOMINE HCL 20 MG TAB PO SCH ×2 (12:40→16:55)
[2017-02-02] MEDS ORDERED: PEG (High)/E-LYTE SOLN 4000 ML BTL PO ONE (16:00)
[2017-02-02 17:16] LABS: AUTOMATED NEUTROPHIL # 6.7 TH/MM3 (1.8-7.7); BASOPHIL # 0.1 TH/MM3 (0-0.2); BASOPHIL % 0.6 % (0.0-2.0); EOSINOPHIL # 0.1 TH/MM3 (0-0.4); HEMATOCRIT 37.3 % (35.0-46.0); HEMO FLAGS DIFF FINAL; LYMPH % 14.7 % (9.0-44.0); LYMPHOCYTE # 1.3 TH/MM3 (1.0-4.8); MEAN CELL VOLUME 90.9 FL (80.0-100.0); MEAN CORPUSCULAR HEMOGLOBIN 29.5 PG (27.0-34.0); MEAN CORPUSCULAR HGB CONC 32.4 % (32.0-36.0); MONO % 9.2 % (0.0-8.0); NEUT % 74.5 % (16.0-70.0); PLATELET COUNT 161 TH/MM3 (150-450); RED BLOOD COUNT 4.11 MIL/MM3 (4.00-5.30); RED CELL DISTRIBUTION WIDTH 13.4 % (11.6-17.2)
[2017-02-02 17:34] LABS: BICARBONATE 27.3 MEQ/L (21.0-32.0); POTASSIUM 4.1 MEQ/L (3.5-5.1)
[2017-02-02] MEDS: LOTEPREDNOL OPTH EACH EYE SCH (21:00)
[2017-02-02 21:23] LABS: C. DIFF EPI 027 PRESUMPTIVE NEGATIVE (NEGATIVE)
[2017-02-02] MEDS: MONTELUKAST SODIUM 10 MG TAB PO SCH (21:38)
[2017-02-02] MEDS: CALCIUM/VITAMIN D 250 MG/125 U TAB PO SCH (21:38)
[2017-02-02 22:37] LABS: HEMATOCRIT 38.7 % (35.0-46.0); REVIEW FLAG FINAL
[2017-02-03] VITALS (7 sets, daily range): BP systolic 119–154; BP diastolic 56–79; PULSE 56–96; RESP 16–20; TEMP 96.8–98.7; O2SAT 93–98
[2017-02-03] MEDS: SODIUM CHLOR 0.9% 1000 ML INJ 1,000 ML IV SCH ×3 (03:20→21:04)
[2017-02-03 05:20] LABS: HEMATOCRIT 33.9 % (35.0-46.0); REVIEW FLAG FINAL
[2017-02-03] MEDS: LEVOTHYROXINE SODIUM 112 MCG TAB PO SCH (06:36)
--- NOTE | 2017-02-03 09:22 | HHI.FPPN ---
Subjective Remarks No abdominal pain 3 episodes of bright red blood with BMs yesterday. Feeling tired. New back pain from bed. No CP or SOB. Going for scope today 02/03 at 10 am. Refer to hand written note in chart. Objective Vitals Vital Signs Date Time Temp Pulse Resp B/P (MAP) Pulse Ox O2 Delivery O2 Flow Rate FiO2 02/03/17 07:52 95 21 02/03/17 07:46 96.8 96 18 119/56 (77) 96 02/03/17 03:43 98.0 68 16 148/79 (102) 96 02/02/17 23:41 98.2 70 18 158/67 (97) 98 02/02/17 23:05 98 21 02/02/17 16:29 97.5 69 18 138/65 (89) 96 02/02/17 12:18 98.2 60 20 142/65 (90) 96 Result Diagram: 02/03/17 0430 02/02/17 1636 Mann Forman MD, R3 Feb 03, 2017 09:22
[2017-02-03] MEDS: DICYCLOMINE HCL 20 MG TAB PO SCH ×3 (09:30→18:43)
[2017-02-03] MEDS: HYDROXYCHLOROQUINE SULFATE 200 MG TAB PO SCH ×2 (09:50→21:03)
[2017-02-03] MEDS: LORATADINE 10 MG TAB PO SCH (09:50)
[2017-02-03] MEDS: SODIUM CHLORIDE 0.9% FLUSH 10 ML FLUSH IV FLUSH SCH ×2 (09:50→21:00)
[2017-02-03] MEDS: FLUTICASONE PROPIONATE 44 MCG/ACT 10.6 GM INHALER INH SCH ×2 (09:50→21:03)
[2017-02-03] MEDS: ATORVASTATIN 10 MG TAB PO SCH (09:50)
[2017-02-03] MEDS: LOSARTAN 50 MG TAB PO SCH (09:50)
[2017-02-03] MEDS: PANTOPRAZOLE SODIUM 40 MG VIAL IV SCH ×2 (10:50→21:00)
[2017-02-03] MEDS ORDERED: PROPOFOL 200 MG/20 ML AMP IV ONE (12:00)
[2017-02-03] MEDS ORDERED: ACETAMINOPHEN/HYDROcodone 325 MG/5 MG TAB ONE (12:10)
[2017-02-03] MEDS: VERAPAMIL PO SCH (13:43)
[2017-02-03] MEDS: LOTEPREDNOL OPTH EACH EYE SCH ×2 (13:44→21:00)
[2017-02-03] MEDS ORDERED: ACETAMINOPHEN/HYDROcodone 325 MG/5 MG TAB PO PRN (14:00)
[2017-02-03] MEDS ORDERED: DO NOT ADM ANY ANTICOAGULANT DRUGS PRN (14:15)
[2017-02-03 14:22] LABS: HEMATOCRIT 36.8 % (35.0-46.0); REVIEW FLAG FINAL
[2017-02-03] MEDS: MONTELUKAST SODIUM 10 MG TAB PO SCH (21:03)
[2017-02-03] MEDS: CALCIUM/VITAMIN D 250 MG/125 U TAB PO SCH (21:03)
[2017-02-03 21:40] LABS: HEMATOCRIT 35.1 % (35.0-46.0); REVIEW FLAG FINAL
[2017-02-04] MEDS: SODIUM CHLOR 0.9% 1000 ML INJ 1,000 ML IV SCH (02:38)
[2017-02-04 04:20] VITALS: BP 147/77; PULSE 64; RESP 18; TEMP 98.4; O2SAT 98
[2017-02-04 04:27] LABS: BASOPHIL # 0.1 TH/MM3 (0-0.2); BASOPHIL % 1.1 % (0.0-2.0); EOSINOPHIL # 0.2 TH/MM3 (0-0.4); EOSINOPHIL % 2.3 % (0.0-4.0); HEMATOCRIT 36.4 % (35.0-46.0); HEMO FLAGS DIFF FINAL; LYMPHOCYTE # 1.9 TH/MM3 (1.0-4.8); MEAN CELL VOLUME 91.4 FL (80.0-100.0); MEAN CORPUSCULAR HEMOGLOBIN 29.1 PG (27.0-34.0); MEAN CORPUSCULAR HGB CONC 31.8 % (32.0-36.0); MONO % 8.9 % (0.0-8.0); NEUT % 63.7 % (16.0-70.0); PLATELET COUNT 189 TH/MM3 (150-450); RED BLOOD COUNT 3.99 MIL/MM3 (4.00-5.30); RED CELL DISTRIBUTION WIDTH 13.1 % (11.6-17.2); WHITE BLOOD COUNT 7.9 TH/MM3 (4.0-11.0)
[2017-02-04 04:47] LABS: BICARBONATE 25.8 MEQ/L (21.0-32.0); POTASSIUM 3.7 MEQ/L (3.5-5.1)
[2017-02-04] MEDS: LEVOTHYROXINE SODIUM 112 MCG TAB PO SCH (05:27)
[2017-02-04 07:19] VITALS: BP 161/73; PULSE 57; RESP 17; TEMP 98.3; O2SAT 96
--- NOTE | 2017-02-04 08:19 | HHI.FPPN ---
Subjective Remarks Feeling well. Complaining of back pain. Tolerating whole meals including a tune fish sandwich. No N/V/Diarrhea. No blood in stool. Crampy abdominal pain at baseline but not worse. No fevers or chills. No SOB or chest pain. Ambulating without difficulty. (Mann Forman MD, R3) Objective Vitals Vital Signs Date Time Temp Pulse Resp B/P (MAP) Pulse Ox O2 Delivery O2 Flow Rate FiO2 02/04/17 07:19 98.3 57 17 161/73 (102) 96 02/04/17 04:20 98.4 64 18 147/77 (100) 98 02/03/17 23:21 98.1 68 18 154/67 (96) 97 02/03/17 20:21 98.7 68 18 145/65 (91) 98 02/03/17 20:14 93 02/03/17 14:39 97.9 56 20 147/67 (93) 95 I/O 02/03/17 02/03/17 02/03/17 02/04/17 02/04/17 02/04/17 07:00 15:00 23:00 07:00 15:00 23:00 Intake Total 1000 ml Balance 1000 ml Intake IV Total 1000 ml (Mann Forman MD, R3) Result Diagram: 02/04/17 0330 02/04/17 0330 Objective Remarks GEN: NAD resting HEENT: PERRL, throat without erythema or exudates, uvula midline RESP: CTAB CV: 3/6 AIDA at left sternal border, pulses equal EXT: No calf tenderness, 5/5 strength throughout ABD: ND TTP in suprapubic area. BS hypoactive. (Mann Forman MD, R3) A/P Assessment and Plan 71 y/o female with PMHx of external hemorrhoids, IBS, RA, aortic stenosis, COPD , presenting with bright red blood in her stools since Thursday 02/01 at 0330. Hgb on admission was 13.1 --> 11.7 within 12 hours. Colonoscopy and upper endoscopy showing gastritis and sigmoid colon ulcers. Biopsies taken 02/03/17. (Mann Forman MD, R3) Attending Attestation THIS CASE WAS DISCUSSED WITH THE RESIDENT PHYSICIAN DR Cristino FORMAN MD. WE INTERVIEWED AND EXAMINED PATIENT TOGETHER,. I HAVE REVIEWED THE RECORD AND AGREE WITH THE ABOVE NOTE AND PLAN OF CARE WAS DISCUSSED. I HAVE AUTHORIZED THE ORDERS. (Kvng Al MD) Problem List: (1) Hematochezia ICD Codes: K92.1 - Melena Status: Acute Plan: IV PPI 40 mg BID - transition to PO on discharge. IVF at 130 ml/hr - stop. Monitor vitals q 4 hours Serial H&H - stable 11.6 Hgb this AM. Consult GI we appreciate their recommendations Stool studies including c diff negative to date. (2) Fibromyalgia ICD Codes: M79.7 - Fibromyalgia Status: Chronic Plan: Continue home medications (3) GERD (gastroesophageal reflux disease) ICD Codes: K21.9 - Gastro-esophageal reflux disease without esophagitis Status: Chronic Plan: PPI as above. (4) Hypertension ICD Codes: I10 - Essential (primary) hypertension Status: Chronic Plan: BP 161/73 this AM. Cont with clonidine BP > 180 Losartan 100 mg daily. (5) Asthma ICD Codes: J45.909 - Unspecified asthma, uncomplicated Status: Chronic Plan: Continue singulair albuterol nebs q 2 hrs prn sob Flovent 2 puffs bid (6) Hypothyroid ICD Codes: E03.9 - Hypothyroidism, unspecified Status: Chronic Plan: TSH in 10/2015 was 1.74 - continue with home levothyroxine Recheck TSH (7) Lupus (systemic lupus erythematosus) ICD Codes: M32.9 - Systemic lupus erythematosus, unspecified Status: Chronic Plan: Continue with Plaquenil May be better alternative medication if having persistent diarrhea / GI distress (8) Nutrition, metabolism, and development symptoms ICD Codes: R63.8 - Other symptoms and signs concerning food and fluid intake Status: Acute Plan: Diet: Reg diet IVF: as above Pain: Well controlled. DVT ppx: Contraindicated 2/2 GI bleed GI ppx: as above sdw Dr. Al (Mann Forman MD, R3) Problem Qualifiers (1) GERD (gastroesophageal reflux disease): Mann Forman MD, R3 Feb 04, 2017 08:19 Kvng Al MD Feb 04, 2017 19:01
[2017-02-04] MEDS: ATORVASTATIN 10 MG TAB PO SCH (09:36)
[2017-02-04] MEDS: LORATADINE 10 MG TAB PO SCH (09:36)
[2017-02-04] MEDS: DICYCLOMINE HCL 20 MG TAB PO SCH ×2 (09:36→15:39)
[2017-02-04] MEDS: LOSARTAN 50 MG TAB PO SCH (09:36)
[2017-02-04] MEDS: HYDROXYCHLOROQUINE SULFATE 200 MG TAB PO SCH (09:36)
[2017-02-04] MEDS: VERAPAMIL PO SCH (09:37)
[2017-02-04] MEDS: LOTEPREDNOL OPTH EACH EYE SCH (09:38)
[2017-02-04] MEDS: FLUTICASONE PROPIONATE 44 MCG/ACT 10.6 GM INHALER INH SCH (09:38)
[2017-02-04] MEDS: PANTOPRAZOLE SODIUM 40 MG VIAL IV SCH (09:38)
[2017-02-04] MEDS: SODIUM CHLORIDE 0.9% FLUSH 10 ML FLUSH IV FLUSH SCH (09:38)
--- NOTE | 2017-02-04 09:51 | HHI.DS ---
Discharge Summary Admission Date Feb 01, 2017 at 18:17 Discharge Date: Feb 04, 2017 Admitting Diagnosis Acute hematachezia; Abdominal cramping (1) Hematochezia Plan: IV PPI 40 mg BID - transition to PO on discharge. IVF at 130 ml/hr - stop. Monitor vitals q 4 hours Serial H&H - stable 11.6 Hgb this AM. Consult GI we appreciate their recommendations Stool studies including c diff negative to date. ICD Codes: K92.1 - Melena Status: Acute (2) Fibromyalgia Plan: Continue home medications ICD Codes: M79.7 - Fibromyalgia Status: Chronic (3) GERD (gastroesophageal reflux disease) Plan: PPI as above. ICD Codes: K21.9 - Gastro-esophageal reflux disease without esophagitis Status: Chronic (4) Hypertension Plan: BP 161/73 this AM. Cont with clonidine BP > 180 Losartan 100 mg daily. ICD Codes: I10 - Essential (primary) hypertension Status: Chronic (5) Asthma Plan: Continue singulair albuterol nebs q 2 hrs prn sob Flovent 2 puffs bid ICD Codes: J45.909 - Unspecified asthma, uncomplicated Status: Chronic (6) Hypothyroid Plan: TSH in 10/2015 was 1.74 - continue with home levothyroxine Recheck TSH ICD Codes: E03.9 - Hypothyroidism, unspecified Status: Chronic (7) Lupus (systemic lupus erythematosus) Plan: Continue with Plaquenil May be better alternative medication if having persistent diarrhea / GI distress ICD Codes: M32.9 - Systemic lupus erythematosus, unspecified Status: Chronic (8) Nutrition, metabolism, and development symptoms Plan: Diet: Reg diet IVF: as above Pain: Well controlled. DVT ppx: Contraindicated 2/2 GI bleed GI ppx: as above sdw Dr. Al ICD Codes: R63.8 - Other symptoms and signs concerning food and fluid intake Status: Acute Brief History Mrs. Ware is a 71-year-old female with a extensive past medical history presenting to the emergency department after one episode of bright red blood per rectum. She reports that she has been previously diagnosed with irritable bowel syndrome, diarrhea type, that "flared up" this morning around 0330. She states that the cramps associated with the diarrhea or so severe that she felt like she was going to "black out." She states that the abdominal pain is very sharp in nature located primarily in the lower 2 quadrants and scores the pain and 8/10 the pain scale. Over the course of the morning she had 3 total episodes of diarrhea ranging from initially semisolid to the last episode with all liquid diarrhea. Shortly after the last episode at around 1430 she had one episode of medium thickness bright red blood per rectum that covered the entire toilet measuring approximately a cup per patient report. She also states that there were a "couple of blood clots." Since that time she became dizzy and was off balance. She has not been able to tolerate a diet today as she also endorses nausea. She reports no sick contacts at this time. She takes a daily aspirin, however she takes no other anticoagulants. She has been told she has a small internal hemorrhoid that she reports does not bother her. She is also urinary incontinent at baseline and is required to wear briefs at most times. Otherwise she has no complaints and denies any fevers, chills, shortness of breath, chest pain, or calf tenderness. CBC/BMP: 02/04/17 0330 02/04/17 0330 Significant Findings Laboratory Tests Test 02/01/17 15:48 02/01/17 16:10 02/02/17 03:22 02/02/17 16:36 White Blood Count 13.2 TH/MM3 (4.0-11.0) Neutrophils (%) (Auto) 84.6 % (16.0-70.0) 72.3 % (16.0-70.0) 74.5 % (16.0-70.0) Lymphocytes (%) (Auto) 8.1 % (9.0-44.0) Neutrophils # (Auto) 11.1 TH/MM3 (1.8-7.7) Blood Urea Nitrogen 22 MG/DL (7-18) Creatinine 1.08 MG/DL (0.50-1.00) Estimat Glomerular Filtration Rate 50 ML/MIN (>89) 62 ML/MIN (>89) 56 ML/MIN (>89) Urine Occult Blood SMALL (NEG) Urine Leukocyte Esterase TRACE (NEG) Urine RBC 4 /hpf (0-3) Urine WBC 6 /hpf (0-5) Urine Mucus FEW /lpf (OCC) Monocytes (%) (Auto) 9.4 % (0.0-8.0) 9.2 % (0.0-8.0) Chloride Level 110 MEQ/L (98-107) 110 MEQ/L (98-107) Random Glucose 115 MG/DL (74-106) Test 02/02/17 16:44 02/02/17 22:13 02/03/17 04:30 02/03/17 14:15 Hemoglobin 11.2 GM/DL (11.6-15.3) Hematocrit 33.9 % (35.0-46.0) Test 02/03/17 21:08 02/04/17 03:30 Hemoglobin 11.5 GM/DL (11.6-15.3) Red Blood Count 3.99 MIL/MM3 (4.00-5.30) Mean Corpuscular Hemoglobin Concent 31.8 % (32.0-36.0) Monocytes (%) (Auto) 8.9 % (0.0-8.0) Chloride Level 110 MEQ/L (98-107) Estimat Glomerular Filtration Rate 58 ML/MIN (>89) PE at Discharge GEN: NAD resting HEENT: PERRL, throat without erythema or exudates, uvula midline RESP: CTAB CV: 3/6 AIDA at left sternal border, pulses equal EXT: No calf tenderness, 5/5 strength throughout ABD: ND TTP in suprapubic area. BS hypoactive. Hospital Course Mrs. Ware is a 71 y/o female with a PMHX of COPD/chronic asthma, fibromyalgia , Lupus, hypertension, hypothyroidism and GERD who presents with 1 episode of hematochezia. Her hgb on admission was stable at ~12.0 gm/dL. She did a go- lytely prep and had an upper and lower scope. This was sign for gastritis and a sigmoid ulceration. Her bleeding resolved, she was tolerating PO diet, and had a stable H&H on discharge. She will follow up with her PCP and gastroenterology in 1 week. She was discharged home in stable condition. New meds: Bentyl and PPI. Pt Condition on Discharge: Stable Mann Forman MD, R3 Feb 04, 2017 09:50
[2017-02-04] MEDS ORDERED: PANT40TA3 PO (10:12)
[2017-02-04] MEDS ORDERED: ACETAMINOPHEN 325 MG TAB PO PRN (10:15)
[2017-02-04] MEDS ORDERED: DICY20TA10 PO (10:17)
--- NOTE | 2017-02-04 10:18 | HHI.DCPOC ---
Discharge Care Plan Diagnosis: (1) Diarrhea (2) Sigmoid colon ulcer Goals to Promote Your Health * To prevent worsening of your condition and complications * To maintain your health at the optimal level Directions to Meet Your Goals Take your medications as prescribed Follow your dietary instruction Follow activity as directed Keep your appointments as scheduled Take your immunizations and boosters as scheduled If your symptoms worsen call your PCP, if no PCP go to Urgent Care Center or Emergency Room Smoking is Dangerous to Your Health. Avoid second hand smoke Call the 24-hour hour crisis hotline for domestic abuse at Mann Forman MD, R3 Feb 04, 2017 10:18
[2017-02-04 11:40] VITALS: BP 187/75; PULSE 57; RESP 19; TEMP 98.1; O2SAT 98
[2017-02-04] MEDS: cloNIDine HCL 0.1 MG TAB PO PRN (12:13)
[2017-02-04 12:51] VITALS: BP 148/78
[2017-02-07] MEDS ORDERED: TRIA40P I-ARTICULR (16:07)
[2017-02-07] MEDS ORDERED: KETO60IN6 IM (16:07)
[2017-03-05] MEDS ORDERED: DICY20TA10 PO (16:03)
== END 2017-02-04 18:10 | disposition home or self-care (01) ==
LOC: NEPE 14:57 → NEDA 18:17 → NEPGCP 21:56
PROVIDERS: ADMIT Family Medicine; ATTEND Family Medicine
DX: K92.1 Melena (principal); K63.3 Ulcer of intestine; R10.30 Lower abdominal pain, unspecified; M32.14 Glomerular disease in systemic lupus erythematosus; M79.7 Fibromyalgia; M19.90 Unspecified osteoarthritis, unspecified site; K58.0 Irritable bowel syndrome with diarrhea; R73.03 Prediabetes; K21.9 Gastro-esophageal reflux disease without esophagitis; I10 Essential (primary) hypertension; E03.9 Hypothyroidism, unspecified; G47.33 Obstructive sleep apnea (adult) (pediatric); K76.0 Fatty (change of) liver, not elsewhere classified; J44.9 Chronic obstructive pulmonary disease, unspecified; E11.9 Type 2 diabetes mellitus without complications; E78.00 Pure hypercholesterolemia, unspecified; N17.9 Acute kidney failure, unspecified; D72.829 Elevated white blood cell count, unspecified; I25.10 Atherosclerotic heart disease of native coronary artery without angina pectoris; Z79.51 Long term (current) use of inhaled steroids; Z79.899 Other long term (current) drug therapy; Z80.0 Family history of malignant neoplasm of digestive organs; Z87.11 Personal history of peptic ulcer disease; Z86.010 Personal history of colon polyps
CPT/HCPCS: 00810; 45380; 71010; 74177; 80048; 80053; 81001; 82272; 85014; 85018; 85025; 85610; 85730; 86850; 86900; 86901; 87015; 87205; 87328; 87329; 87425; 87493; 87506; 88305; 88312; 96374; 99285; C9113; G0378; J7030; Q9967; 87116; 87206; 87338

== ENCOUNTER 2017-04-29 12:53 | Emergency (ER) | payer MEDICARE, OTHER ==
[~2017-04-29] VITALS: Ht 162.6 cm; Wt 90.0 kg
[~2017-04-29 12:53] MED LIST changes: -ASPI81TA5 PO; -DETR2TAB PO; +DICY20TA10 PO; +ECASA81 PO; -MONT10TA4 PO; +PANT40TA3 PO; -ZOSTINJ SQ
[2017-04-29 12:56] VITALS: BP 162/85; PULSE 73; RESP 20; TEMP 98.2; O2SAT 97
--- NOTE | 2017-04-29 13:50 | PD ---
HPI Chief Complaint: Flank/Kidney Pain Time Seen by Provider: 13:44 Travel History International Travel<30 days: No Contact w/Intl Traveler<30days: No Traveled to known affect area: No History of Present Illness HPI c/o left flank pain, 11/24, rad to left flank/llq, no n/v/d/ associated with it and no alleviating/aggravating factors noted.... PFSH Past Medical History Arthritis: Yes Asthma: Yes (ENVIRONMENTAL) Autoimmune Disease: Yes (LUPUS) Heart Rhythm Problems: Yes (murmur) Cardiovascular Problems: Yes (HTN) High Cholesterol: Yes (controlled) Chest Pain: No Congestive Heart Failure: No Cerebrovascular Accident: No Fibromyalgia: Yes Gastrointestinal Disorders: Yes GERD: Yes Genitourinary: Yes (bilat renal bipsy) Headaches: Yes Hiatal Hernia: No Hypertension: Yes Kidney Stones: No Musculoskeletal: Yes (fibromyalgia) Neurologic: Yes Reproductive: No Respiratory: Yes (ASTHMA) Migraines: Yes (hx of, migraine free 10 years ago) Renal Failure: No Seizures: No Sleep Apnea: Yes (no cpap) Thyroid Disease: Yes Ulcer: Yes Past Surgical History Abdominal Surgery: No Cardiac Surgery: No Ear Surgery: No Endocrine Surgery: No Eye Surgery: Yes (CATARACT) Genitourinary Surgery: Yes (RENAL BIOPSY) Gynecologic Surgery: No Oral Surgery: Yes (uvula removed, and sinus) Thoracic Surgery: No Tonsillectomy: Yes Other Surgery: Yes (DEVIATED SEPTUM) Social History Alcohol Use: No Tobacco Use: No Substance Use: No Allergies-Medications (Allergen,Severity, Reaction): Coded Allergies: hydrocodone (Verified Allergy, Mild, Itching, 02/04/17) PATIENT STATES THAT SHE IS EXPERIENCING ITCHING ON HER TORSO, UPPER EXTREMITIES AND TO A LESSER DEGREE, HER LOWER EXTREMITIES. NO ITCHING IN PATIENTS HANDS AND NO RASH PRESENT . adhesive (Verified Allergy, Unknown, 04/29/17) codeine (Verified Allergy, Unknown, 04/29/17) meperidine (Verified Allergy, Unknown, 04/29/17) methylene blue (Verified Allergy, Unknown, 04/29/17) morphine (Verified Allergy, Unknown, 04/29/17) penicillin G (Verified Allergy, Unknown, 04/29/17) povidone-iodine (Verified Allergy, Unknown, 04/29/17) Reported Meds & Prescriptions Reported Meds & Active Scripts Active Dicyclomine (Dicyclomine HCl) 20 Mg Tab 20 Mg PO TID Pantoprazole (Pantoprazole Sodium) 40 Mg Tab 40 Mg PO DAILY Verelan PM 24 HR (Verapamil HCl) 200 Mg Cap 200 Mg PO DAILY Omnaris Nasal (Ciclesonide Nasal) 50 Mcg/Act [place] 2 [place] EACH NARE DAILY 2 sprays into each nostril Crestor (Rosuvastatin Calcium) 5 Mg Tab 5 Mg PO DAILY Levothyroxine (Levothyroxine Sodium) 112 Mcg Tab 112 Mcg PO DAILY Alrex Opth Drops (Loteprednol Etabonate) 0.2 % Soln 1 Drop EACH EYE BID Detrol LA (Tolterodine Tartrate) 2 Mg Cap 2 Mg PO DAILY Telmisartan 80 Mg Tab 80 Mg PO DAILY Tizanidine (Tizanidine HCl) 2 Mg Tab 2 Mg PO HS PRN Meclizine (Meclizine HCl) 25 Mg Tab 25 Mg PO TID PRN Xopenex Hfa 15 GM Inh (Levalbuterol 15 GM Inh) 45 Mcg/Act Aer 45 Mcg INH Q6HR Shake well before using. (1 puff = 45 mcg) Flovent Hfa 10.6 GM Inh (Fluticasone Propionate) 44 Mcg/Act Inh 2 Puff INH BID Use daily at the same time. Clonazepam 0.5 Mg Tab 0.5 Mg PO DAILY PRN Reported Caltrate 600+D Plus Minerals (Calcium Carbonate-Vitamin D W/Minerals) 600-800 Mg -Unit Tab 1 Tab PO HS Aspirin DR (Aspirin) 81 Mg Tabdr 81 Mg PO DAILY Epipen 2-Tristan Inj (Epinephrine) 0.3 Mg/0.3 Ml Pfpen 0.3 Mg IM ONCE PRN Azelastine Opth Drops 0.05% Soln 1 Drop EACH EYE DAILY Singulair (Montelukast Sodium) 10 Mg Tab 10 Mg PO HS Spiriva Handihaler (Tiotropium Inh) 18 Mcg Cap 18 Mcg INH DAILY 1 capsule = 18 mcg Hydroxychloroquine (Hydroxychloroquine Sulfate) 200 Mg Tab 200 Mg PO BID Takw with food Probiotic (Probiotic Product) 1 Tab Tab 1 Tab PO DAILY [place]-3 1400 mg ([place]-3 Fatty Acids) 1 Cap Cap 1,400 Mg PO DAILY Fexofenadine (Fexofenadine HCl) 180 Mg Tab 180 Mg PO DAILY Docusate Sodium 100 Mg Tab 200 Mg PO DAILY Restasis Opth 0.05% (Cyclosporine Opth 0.05%) 0.05% Emul 1 Drop EACH EYE BID Review of Systems Except as stated in HPI: all other systems reviewed are Neg General / Constitutional: No: Fever Eyes: No: Visual changes HENT: No: Headaches Cardiovascular: No: Chest Pain or Discomfort Respiratory: No: Shortness of Breath Gastrointestinal: No: Abdominal Pain Genitourinary: Positive: Flank Pain Musculoskeletal: No: Pain Skin: No Rash Neurologic: No: Weakness Psychiatric: No: Depression Endocrine: No: Polydipsia Hematologic/Lymphatic: No: Easy Bruising Physical Exam Narrative GENERAL: SKIN: Warm and dry. HEAD: Atraumatic. Normocephalic. EYES: Pupils equal and round. No scleral icterus. No injection or drainage. ENT: No nasal bleeding or discharge. Mucous membranes pink and moist. NECK: Trachea midline. No JVD. CARDIOVASCULAR: Regular rate and rhythm. RESPIRATORY: No accessory muscle use. Clear to auscultation. Breath sounds equal bilaterally. GASTROINTESTINAL: Abdomen soft, non-tender, nondistended. MUSCULOSKELETAL: Extremities without clubbing, cyanosis, or edema. No obvious deformities. positive slr bilaterally NEUROLOGICAL: Awake and alert. No obvious cranial nerve deficits. Motor grossly within normal limits. Five out of 5 muscle strength in the arms and legs. Normal speech. PSYCHIATRIC: Appropriate mood and affect; insight and judgment normal. Data Data Last Documented VS Vital Signs Date Time Temp Pulse Resp B/P (MAP) Pulse Ox O2 Delivery O2 Flow Rate FiO2 04/29/17 12:56 98.2 73 20 162/85 (110) 97 Orders Orders Urinalysis - C+S If Indicated (04/29/17 13:13) Electrocardiogram (04/29/17 13:13) Basic Metabolic Panel (Bmp) (04/29/17 13:52) Lipase (04/29/17 13:52) Ct Abd/Pel W/O Iv Contrast (04/29/17 13:52) Dexamethasone Inj (Decadron Inj) (04/29/17 14:00) Tramadol (Ultram) (04/29/17 15:00) Labs Laboratory Tests Test 04/29/17 13:59 04/29/17 14:16 Blood Urea Nitrogen 19 MG/DL Creatinine 0.83 MG/DL Random Glucose 114 MG/DL Calcium Level 9.1 MG/DL Sodium Level 139 MEQ/L Potassium Level 4.1 MEQ/L Chloride Level 107 MEQ/L Carbon Dioxide Level 25.3 MEQ/L Anion Gap 7 MEQ/L Estimat Glomerular Filtration Rate 68 ML/MIN Lipase 230 U/L Urine Color YELLOW Urine Turbidity CLEAR Urine pH 5.5 Urine Specific [place] 1.016 Urine Protein 30 mg/dL Urine Glucose (UA) NEG mg/dL Urine Ketones NEG mg/dL Urine Occult Blood SMALL Urine Nitrite NEG Urine Bilirubin NEG Urine Urobilinogen LESS THAN 2.0 MG/DL Urine Leukocyte Esterase TRACE Urine RBC 10 /hpf Urine WBC 2 /hpf Urine Squamous Epithelial Cells 1 /hpf Urine Mucus FEW /lpf Microscopic Urinalysis Comment CULT NOT INDICATED MDM Medical Decision Making Medical Screen Exam Complete: Yes Emergency Medical Condition: Yes Medical Record Reviewed: Yes Differential Diagnosis constipation v pyelo v kidney stone Narrative Course ua neg for uti, lipase wnl and bmp wnl. ct neg for any internal inflammation/ kidney stone or aneurysm at this point. only e/o constipation Diagnosis Primary Impression: Constipation Qualified Codes: K59.00 - Constipation, unspecified Additional Impression: Sciatica Qualified Codes: M54.31 - Sciatica, right side; M54.32 - Sciatica, left side Patient Instructions: Constipation (ED), General Instructions, Sciatica (ED) Scripts Polyethylene Glycol 3350 Powder (Miralax Powder) 17 Gm Powd 17 GM PO DAILY for Constipation for 5 Days, #1 CAN 0 Refills Mix and dissolve one measuring cap-ful (17 grams) in water or juice. Prov: Cirilo Hubbard MD 04/29/17 Tramadol (Ultram) 50 Mg Tab 50 MG PO Q4H Y for PAIN, #15 TAB 0 Refills Prov: Cirilo Hubbard MD 04/29/17 Disposition: 01 DISCHARGE HOME Condition: Stable Cirilo Hubbard MD Apr 29, 2017 13:50
[2017-04-29] MEDS ORDERED: DEXAMETHASONE SOD PHOS 20 MG/5 ML VIAL IM ONE (14:00)
[2017-04-29 14:35] LABS: BLOOD, URINE SMALL (NEG); COMMENT (UR) CULT NOT INDICATED; CULTURE IF INDICATED CULT NOT INDICATED; GLUCOSE,URINE NEG (NEG); KETONE, URINE NEG (NEG); MUCUS URINE FEW /lpf (OCC); NITRITE,URINE NEG (NEG); PH, URINE 5.5 (5.0-8.5); SQUAMOUS EPITHELIAL CELL URINE 1 /hpf (0-5); URINE COLOR YELLOW (YELLW/STRAW)
[2017-04-29 14:39] LABS: BICARBONATE 25.3 MEQ/L (21.0-32.0); POTASSIUM 4.1 MEQ/L (3.5-5.1)
[2017-04-29] MEDS ORDERED: traMADol HCL 50 MG TAB PO ONE (15:00)
--- NOTE | 2017-04-29 15:13 | RADRPT ---
EXAM DATE/TIME: 04/29/2017 14:21 [facility] COMPARISON: CT ABDOMEN & PELVIS W CONTRAST, February 01, 2017, 16:52. INDICATIONS : Low back pain ORAL CONTRAST: No oral contrast ingested. RADIATION DOSE: 11.70 CTDIvol (mGy) MEDICAL HISTORY : Lupus. Hypertension. Diabetes mellitus type 1. SURGICAL HISTORY : None. ENCOUNTER: Initial ACUITY: 1 day PAIN SCALE: 10/10 LOCATION: Bilateral low back pain TECHNIQUE: Volumetric scanning of the abdomen and pelvis was performed. Using automated exposure control and ad justment of the mA and/or kV according to patient size, radiation dose was kept as low as reasonably achievable to obtain optimal diagnostic quality images. DICOM format image data is available electro nically for review and comparison. FINDINGS: The limited portion of lung base visualized is clear. Right kidney/ureter: The right kidney is normal in size. No stones are seen. The right ureter is followed throughout its c ourse and is normal in caliber throughout. Left kidney/ureter: The left kidney is normal in size. No stones are seen within the collecting system. There is no hydro nephrosis. The left ureter is followed throughout its course and is unremarkable in appearance. Bladder: No stones are identified within the bladder. The appearance of the liver, spleen, pancreas and adrenal glands is within normal limits. The abdominal aorta is normal in caliber. There is no retroperitoneal lymphadenopathy. The visualized loops of small and large bowel demonstrate a moderate amount of stool throughout the c olon suggesting possible constipation. No findings to indicate bowel obstruction are seen. No free intraperitoneal air or free intraperitoneal fluid is identified. There are degenerative changes throughout the spine. CONCLUSION: 1. Moderate amount of stool throughout the colon suggesting possible constipation. 2. Degenerative changes of the lumbar spine. 3. No findings to indicate renal obstruction identified. Lul Sales MD on April 29, 2017 at 15:08 Board Certified Radiologist. This report was verified electronically.
[2017-04-29] MEDS ORDERED: MIRA3350 PO (15:59)
[2017-04-29] MEDS ORDERED: TRAM50 PO (15:59)
[2017-05-01] MEDS ORDERED: CYCL7.5T33 PO (15:44)
== END 2017-04-29 16:43 | disposition home or self-care (01) ==
LOC: NEPD 12:53
DX: K59.00 Constipation, unspecified (principal); M54.42 Lumbago with sciatica, left side; M54.41 Lumbago with sciatica, right side; M79.7 Fibromyalgia
CPT/HCPCS: 74176; 80048; 81001; 83690; 96372; 99285; J1100

== ENCOUNTER 2017-05-06 10:59 | Emergency (ER) | payer MEDICARE, OTHER ==
[~2017-05-06] VITALS: Ht 167.6 cm; Wt 80.0 kg
[~2017-05-06 10:59] MED LIST changes: +CYCL7.5T33 PO; +MIRA3350 PO; +TRAM50 PO
[2017-05-06 11:01] VITALS: BP 195/81; PULSE 73; RESP 18; TEMP 98.7; O2SAT 97
[2017-05-06] MEDS ORDERED: diphenhydrAMINE HCL 50 MG/ML VIAL IM ONE (11:45)
[2017-05-06] MEDS ORDERED: HYDROmorphone HCL PF 1 MG/ML VIAL IM ONE (11:45)
--- NOTE | 2017-05-06 12:33 | PD ---
HPI Chief Complaint: Musculoskeletal Complaint Time Seen by Provider: 11:33 Travel History International Travel<30 days: No Contact w/Intl Traveler<30days: No Traveled to known affect area: No History of Present Illness HPI This is a 71-year-old female who has a history of fibromyalgia and lupus who presents to the emergency department with pain in her right low back that started 1 week ago, constant, severe, shooting down the back of her right leg associated with some weakness in both of her legs. She was seen for this in the emergency department one week ago and started on tramadol which she says is not helping. She says is very difficult for her to walk. She says she is chronically incontinent of urine and she has irritable bowel syndrome. She says that cortisone injections helped her in the past but she says she's only and received them from the hospital and she's never seen a specialist for her back. She's never had an MRI of her lower back. She has had sciatica in the past. PFSH Past Medical History Arthritis: Yes Asthma: Yes (ENVIRONMENTAL) Autoimmune Disease: Yes (LUPUS) Heart Rhythm Problems: Yes (murmur) Cardiovascular Problems: Yes (HTN) High Cholesterol: Yes (controlled) Chest Pain: No Congestive Heart Failure: No Cerebrovascular Accident: No Fibromyalgia: Yes Gastrointestinal Disorders: Yes GERD: Yes Genitourinary: Yes (bilat renal bipsy) Headaches: Yes Hiatal Hernia: No Hypertension: Yes Kidney Stones: No Musculoskeletal: Yes (fibromyalgia) Neurologic: Yes Reproductive: No Respiratory: Yes (ASTHMA) Migraines: Yes (hx of, migraine free 10 years ago) Renal Failure: No Seizures: No Sleep Apnea: Yes (no cpap) Thyroid Disease: Yes (hypo) Ulcer: Yes Tetanus Vaccination: < 5 Years Past Surgical History Abdominal Surgery: No Cardiac Surgery: No Ear Surgery: No Endocrine Surgery: No Eye Surgery: Yes (CATARACT) Genitourinary Surgery: Yes (RENAL BIOPSY) Gynecologic Surgery: No Oral Surgery: Yes (uvula removed, and sinus) Thoracic Surgery: No Tonsillectomy: Yes Other Surgery: Yes (DEVIATED SEPTUM) Social History Alcohol Use: No Tobacco Use: No Substance Use: No Allergies-Medications (Allergen,Severity, Reaction): Coded Allergies: hydrocodone (Verified Allergy, Mild, Itching, 05/06/17) PATIENT STATES THAT SHE IS EXPERIENCING ITCHING ON HER TORSO, UPPER EXTREMITIES AND TO A LESSER DEGREE, HER LOWER EXTREMITIES. NO ITCHING IN PATIENTS HANDS AND NO RASH PRESENT . adhesive (Verified Allergy, Unknown, 05/06/17) codeine (Verified Allergy, Unknown, 05/06/17) meperidine (Verified Allergy, Unknown, 05/06/17) methylene blue (Verified Allergy, Unknown, 05/06/17) morphine (Verified Allergy, Unknown, 05/06/17) penicillin G (Verified Allergy, Unknown, 05/06/17) povidone-iodine (Verified Allergy, Unknown, 05/06/17) Reported Meds & Prescriptions Reported Meds & Active Scripts Active Flexeril (Cyclobenzaprine HCl) 7.5 Mg Tab 7.5 Mg PO TID Miralax Powder (Polyethylene Glycol 3350 Powder) 17 Gm Powd 17 Gm PO DAILY 5 Days Mix and dissolve one measuring cap-ful (17 grams) in water or juice. Ultram (Tramadol HCl) 50 Mg Tab 50 Mg PO Q4H PRN Dicyclomine (Dicyclomine HCl) 20 Mg Tab 20 Mg PO TID Pantoprazole (Pantoprazole Sodium) 40 Mg Tab 40 Mg PO DAILY Verelan PM 24 HR (Verapamil HCl) 200 Mg Cap 200 Mg PO DAILY Omnaris Nasal (Ciclesonide Nasal) 50 Mcg/Act [place] 2 [place] EACH NARE DAILY 2 sprays into each nostril Crestor (Rosuvastatin Calcium) 5 Mg Tab 5 Mg PO DAILY Levothyroxine (Levothyroxine Sodium) 112 Mcg Tab 112 Mcg PO DAILY Alrex Opth Drops (Loteprednol Etabonate) 0.2 % Soln 1 Drop EACH EYE BID Detrol LA (Tolterodine Tartrate) 2 Mg Cap 2 Mg PO DAILY Telmisartan 80 Mg Tab 80 Mg PO DAILY Tizanidine (Tizanidine HCl) 2 Mg Tab 2 Mg PO HS PRN Meclizine (Meclizine HCl) 25 Mg Tab 25 Mg PO TID PRN Xopenex Hfa 15 GM Inh (Levalbuterol 15 GM Inh) 45 Mcg/Act Aer 45 Mcg INH Q6HR Shake well before using. (1 puff = 45 mcg) Flovent Hfa 10.6 GM Inh (Fluticasone Propionate) 44 Mcg/Act Inh 2 Puff INH BID Use daily at the same time. Clonazepam 0.5 Mg Tab 0.5 Mg PO DAILY PRN Reported Caltrate 600+D Plus Minerals (Calcium Carbonate-Vitamin D W/Minerals) 600-800 Mg -Unit Tab 1 Tab PO HS Aspirin DR (Aspirin) 81 Mg Tabdr 81 Mg PO DAILY Epipen 2-Tristan Inj (Epinephrine) 0.3 Mg/0.3 Ml Pfpen 0.3 Mg IM ONCE PRN Azelastine Opth Drops 0.05% Soln 1 Drop EACH EYE DAILY Singulair (Montelukast Sodium) 10 Mg Tab 10 Mg PO HS Spiriva Handihaler (Tiotropium Inh) 18 Mcg Cap 18 Mcg INH DAILY 1 capsule = 18 mcg Hydroxychloroquine (Hydroxychloroquine Sulfate) 200 Mg Tab 200 Mg PO BID Takw with food Probiotic (Probiotic Product) 1 Tab Tab 1 Tab PO DAILY [place]-3 1400 mg ([place]-3 Fatty Acids) 1 Cap Cap 1,400 Mg PO DAILY Fexofenadine (Fexofenadine HCl) 180 Mg Tab 180 Mg PO DAILY Docusate Sodium 100 Mg Tab 200 Mg PO DAILY Restasis Opth (Cyclosporine Opth) 0.05% Emul 1 Drop EACH EYE BID Review of Systems Except as stated in HPI: all other systems reviewed are Neg Physical Exam Narrative GENERAL:Well appearing, no acute distress SKIN: Focused skin assessment warm and dry. HEAD: Atraumatic. Normocephalic. EYES: Pupils equal and round. No injection or drainage. ENT: Moist mucous membranes NECK: Trachea midline. CARDIOVASCULAR: Regular rate and rhythm. No murmur appreciated. 2+ bilateral DP pulses with normal capillary refill. RESPIRATORY: Clear to auscultation. Breath sounds equal bilaterally. GASTROINTESTINAL: Abdomen soft, non-tender, nondistended. MUSCULOSKELETAL: Tender to palpation over the lower lumbar vertebral bodies. NEUROLOGICAL: Awake and alert. No obvious cranial nerve deficits. 4 out of 5 strength in the right lower extremity. 5 out of 5 strength in left lower extremity. Some clonus inducible in the right lower extremity and hyperreflexia of the Achilles on the right. PSYCHIATRIC: Appropriate mood and affect; insight and judgment normal. Data Data Last Documented VS Vital Signs Date Time Temp Pulse Resp B/P (MAP) Pulse Ox O2 Delivery O2 Flow Rate FiO2 05/06/17 11:01 98.7 73 18 195/81 (119) 97 Orders Orders Mri L Spine W/O Contrast (05/06/17 ) Hydromorphone Pf Inj (Dilaudid Pf Inj) (05/06/17 11:45) Diphenhydramine Inj (Benadryl Inj) (05/06/17 11:45) MDM Medical Decision Making Medical Screen Exam Complete: Yes Emergency Medical Condition: Yes Differential Diagnosis Sciatica, cauda equina syndrome, herniated disc Narrative Course This is a 61-year-old female who presents to the emergency department with sciatica. She's had symptoms similar to this in the past. She has never had MRI imaging. She seems weak in the right lower extremity. This may be secondary to pain but I think I can appreciate some inducible clonus on the right which concerns me she may have a cauda equina syndrome. I think an MRI is appropriate as she was seen one week ago, had CT imaging, and is not doing better. If MRI is reassuring patient can be discharged with gabapentin and prednisone. Josefa Mercado MD May 06, 2017 12:33
--- NOTE | 2017-05-06 13:33 | RADRPT ---
EXAM DATE/TIME: 05/06/2017 12:35 [facility] COMPARISON: No previous studies available for comparison. INDICATIONS : Pain. Low back pain in the cauda equina region. MEDICAL HISTORY : Hypertension. Diabetes mellitus type 2. Lupus, Cardiac murmur. SURGICAL HISTORY : Tonsillectomy. ENCOUNTER: Initial ACUITY: 1 week PAIN SCORE: 4/10 LOCATION: Right side of lower back region. TECHNIQUE: Multiplanar multisequence MRI of the lumbar spine was performed without contrast. FINDINGS: Sagittal images demonstrate normal vertebral body alignment and curvature. No focal areas of marrow r eplacement are identified. The conus terminates normally. Axial images were performed from T12-L1 thr ough L5-S1. There is multilevel disc space narrowing and marginal osteophyte formation maximal at L4- L5. T12-L1: No significant abnormalities identified. L1-L2: No significant abnormalities identified. L2-L3: No significant abnormalities identified. L3-L4: There is broad-based annular bulge of disc. There is mild facet arthritis and ligamentum flavum hyper trophy bilaterally. The neural foramina are clear bilaterally. There is mild spinal canal stenosis. L4-L5: There is broad-based annular bulge of disc. There is mild to moderate spinal canal stenosis. There is moderate facet arthritis bilaterally with ligamentum flavum hypertrophy. The neural foramina are kylie ar bilaterally. L5-S1: A small central to right sided protrusion is present not significantly impinging on the thecal sac. T here is no significant spinal canal stenosis. CONCLUSION: 1. Mild/moderate stenosis at L4-L5 secondary to disc bulge and posterior relative hypertrophy. 2. Mild stenosis at L3-L4 3. Small right-sided protrusion at L5-S1 Elton London MD on May 06, 2017 at 13:03 Board Certified Radiologist. This report was verified electronically.
--- NOTE | 2017-05-06 13:56 | PD ---
Physical Exam Date Seen by Provider: May 06, 2017 Time Seen by Provider: 13:40 Data Data Last Documented VS Vital Signs Date Time Temp Pulse Resp B/P (MAP) Pulse Ox O2 Delivery O2 Flow Rate FiO2 05/06/17 11:01 98.7 73 18 195/81 (119) 97 Orders Orders Mri L Spine W/O Contrast (05/06/17 ) Hydromorphone Pf Inj (Dilaudid Pf Inj) (05/06/17 11:45) Diphenhydramine Inj (Benadryl Inj) (05/06/17 11:45) Ed Discharge Order (05/06/17 14:04) [facility] Medical Record Reviewed: Yes Supervised Visit with JB: No Narrative Course Patient signed out to me pending MRI results. In short, this is a 71-year-old female with history of recurrent sciatica presents to the emergency room with additional complaints of bilateral lower extremity weakness and occasional urinary incontinence. MRI was ordered in triage to evaluate for possible cauda equina syndrome. MRI shows: Lumbar Spine MRI 05/06/17 0000 Signed Impressions: Service Date/Time: Saturday, May 06, 2017 12:35 - CONCLUSION: 1. Mild/moderate stenosis at L4-L5 secondary to disc bulge and posterior relative hypertrophy. 2. Mild stenosis at L3-L4 3. Small right-sided protrusion at L5- S1 Elton London MD Results discussed with patient and she was provided copy of report. Patient discharged with prescriptions for prednisone and gabapentin. Told to follow-up with PCP for referral to neurosurgery, ortho, or pain management. She understands and agrees to plan. Diagnosis Primary Impression: Sciatica Qualified Codes: M54.31 - Sciatica, right side Referrals: Primary Care Physician Additional Instruction: Rest and drink plenty of fluids. Take prednisone as directed, until gone. Take gabapentin as directed. Apply ice to the affected area for 20 minutes at a time, as needed for pain and swelling. Follow-up with a primary care physician. Return to the emergency room for worsening symptoms. Med/Other Pt SpecificInfo: Prescription(s) given Scripts Gabapentin (Gabapentin) 100 Mg Cap 100 MG PO TID, #30 CAP 0 Refills Prov: Joesfa Mercado MD 05/06/17 Prednisone (Prednisone) 20 Mg Tab 20 MG PO DAILY for 5 Days, #5 TAB 0 Refills Prov: Highet,Josefa H. MD 05/06/17 Disposition: 01 DISCHARGE HOME Condition: Stable Mariza Khanna May 06, 2017 13:56
[2017-05-06] MEDS ORDERED: PRED20 PO (14:03)
[2017-05-06] MEDS ORDERED: GABA100C4 PO (14:03)
[2017-05-06 14:18] VITALS: BP 196/80; PULSE 75; RESP 18; O2SAT 97
[2017-05-18] MEDS ORDERED: ROSU5 PO (10:05)
[2017-05-18] MEDS ORDERED: VERA1CAP PO (10:05)
[2017-05-18] MEDS ORDERED: OMNASPR2 EACH NARE (10:05)
[2017-05-18] MEDS ORDERED: AZEL0.05 EACH EYE (10:05)
[2017-05-18] MEDS ORDERED: TELM1TAB2 PO (10:05)
[2017-05-18] MEDS ORDERED: MONT10TA2 PO (10:05)
[2017-05-18] MEDS ORDERED: DICY20TA10 PO (10:05)
[2017-05-18] MEDS ORDERED: FLUTI44I INH (10:05)
[2017-05-18] MEDS ORDERED: TIZA2TAB PO (10:05)
[2017-05-18] MEDS ORDERED: LEVO-168 PO (10:05)
[2017-05-18] MEDS ORDERED: PANT40TA3 PO (10:05)
== END 2017-05-06 14:27 | disposition home or self-care (01) ==
LOC: NEPD 10:59
DX: M54.31 Sciatica, right side (principal); M48.061 Spinal stenosis, lumbar region without neurogenic claudication; R32 Unspecified urinary incontinence; K58.9 Irritable bowel syndrome, unspecified; M32.9 Systemic lupus erythematosus, unspecified; I10 Essential (primary) hypertension; M79.7 Fibromyalgia; K21.9 Gastro-esophageal reflux disease without esophagitis; J45.909 Unspecified asthma, uncomplicated
CPT/HCPCS: 72148; 96372; 99285; J1170; J1200

== ENCOUNTER 2017-05-30 06:26 | Day surgery (SDC) | payer MEDICARE, OTHER ==
[~2017-05-30] VITALS: Ht 162.6 cm; Wt 90.9 kg
[2017-05-30] VITALS (12 sets, daily range): BP systolic 121–163; BP diastolic 64–94; PULSE 63–78; RESP 18–20; TEMP 97.9–98.2; O2SAT 92–95
[~2017-05-30 06:26] MED LIST changes: +GABA100C4 PO; -HYDR200T3 PO
[2017-05-30] MEDS ORDERED: TELM40 PO (07:03)
[2017-05-30] MEDS ORDERED: MYCO500 PO (07:03)
[2017-05-30 07:22] LABS: AUTOMATED NEUTROPHIL # 4.4 TH/MM3 (1.8-7.7); BASOPHIL # 0.1 TH/MM3 (0-0.2); BASOPHIL % 0.9 % (0.0-2.0); EOSINOPHIL # 0.1 TH/MM3 (0-0.4); EOSINOPHIL % 2.2 % (0.0-4.0); HEMATOCRIT 40.5 % (35.0-46.0); HEMO FLAGS DIFF FINAL; LYMPH % 22.2 % (9.0-44.0); LYMPHOCYTE # 1.5 TH/MM3 (1.0-4.8); MEAN CELL VOLUME 90.7 FL (80.0-100.0); MEAN CORPUSCULAR HEMOGLOBIN 29.6 PG (27.0-34.0); MEAN CORPUSCULAR HGB CONC 32.6 % (32.0-36.0); MONO % 9.6 % (0.0-8.0); NEUT % 65.1 % (16.0-70.0); PLATELET COUNT 221 TH/MM3 (150-450); RED BLOOD COUNT 4.46 MIL/MM3 (4.00-5.30); WHITE BLOOD COUNT 6.7 TH/MM3 (4.0-11.0)
[2017-05-30 07:26] LABS: APTT (PATIENT) 25.6 SEC (24.3-30.1); PROTHROMBIN TIME - PATIENT 10.1 SEC (9.8-11.6)
[2017-05-30] MEDS ORDERED: SODIUM CHLOR 0.9% 1000 ML IV SCH (07:30)
[2017-05-30] MEDS ORDERED: LIDOCAINE 1%/EPINEPHrine 1:100,000 SOLN 20 ML VIAL ONE (07:50)
[2017-05-30] MEDS ORDERED: GELATIN 12 MM/7 MM FOAM ONE (08:00)
[2017-05-30] MEDS ORDERED: MIDAZOLAM HCL 2 MG/2 ML VIAL ONE (08:02)
[2017-05-30] MEDS ORDERED: LABETALOL HCL 100 MG/20 ML VIAL ONE (08:49)
--- NOTE | 2017-05-30 08:53 | PD.RAD ---
Post CT Procedure Prog Note Pre Procedure Diagnosis: (1) Renal dysfunction (2) Lupus (systemic lupus erythematosus) Post Procedure Diagnosis: (1) Renal dysfunction Procedure Date: May 30, 2017 Supervising Radiologist: Tacho Nunez Anesthesia: Conscious Sedation Plan of Activity Patient to Unit: ROPU Patient Condition: Good See PACS Report for procedural detail/treatment Tacho Nunez MD May 30, 2017 08:53
[2017-05-30 09:24] LABS: HEMATOCRIT 38.9 % (35.0-46.0); REVIEW FLAG FINAL
--- NOTE | 2017-05-30 13:11 | RADRPT ---
EXAM DATE/TIME: 05/30/2017 08:22 [facility] COMPARISON: No previous studies available for comparison. INDICATIONS : Chronic kidney disease, proteinuria. SEDATION TIME: 30 minutes BIOPSY SITE: Right kidney MEDICATION(S): 1.) 2 mg midazolam (Versed) IV 2.) 100 mcg fentanyl (Sublimaze) IV 3.) 5 mg labetolol (Normodyne) DEVICE(S): 1.) 17 gauge 10cm coaxial 2.) 18 gauge Temno core biopsy needle 15cm MEDICAL HISTORY : Hypertension. SURGICAL HISTORY : None. ENCOUNTER: Initial ACUITY: 1 day PAIN SCORE: 0/10 LOCATION: Right inguinal A total of four core specimen(s) were obtained and sent to the laboratory for pathologic evaluation. PROCEDURE: 1. CT guided renal biopsy. 2. Conscious sedation with continuous EKG and oximetry monitoring. Prior to the procedure informed consent was obtained. Any appropriate prior imaging studies were rev iewed. Using automated exposure control and adjustment of the mA and/or kV according to patient size, radiat ion dose was kept as low as reasonably achievable to obtain optimal diagnostic quality images. DICOM format image data is available electronically for review and comparison. The site was prepped in a sterile fashion. Full sterile technique was used, including cap, mask, alin rile gloves and gown and a large sterile sheet. Hand hygiene and 2% chlorhexidine and/or betadine/al cohol prep was utilized per protocol for cutaneous antisepsis. The skin and subcutaneous tissues wer e infiltrated with local anesthetic solution. With CT guidance the previously identified target was localized. Biopsy was performed using the presc ribed needle as above. Adequate hemostasis was obtained with compression at the puncture site. Follow-up CT scan reveals no hemorrhage. The patient tolerated the procedure well and there were no complications. The patient was returned to the Radiology Outpatient Unit in stable condition. CONCLUSION: Uncomplicated CT guided big sandy renal biopsy. Tacho Nunez MD on May 30, 2017 at 13:09 Board Certified Radiologist. This report was verified electronically.
[2017-05-30 13:27] LABS: HEMATOCRIT 38.7 % (35.0-46.0); REVIEW FLAG FINAL
== END 2017-05-30 14:35 | disposition home or self-care (01) ==
LOC: HRAD 06:26 → HRIP 06:32 → HRAD 14:35
PROVIDERS: ATTEND Physician Assistant
DX: I12.9 Hypertensive chronic kidney disease with stage 1 through stage 4 chronic kidney disease, or unspecified chronic kidney disease (principal); N18.2 Chronic kidney disease, stage 2 (mild); R80.9 Proteinuria, unspecified; E03.9 Hypothyroidism, unspecified; R06.00 Dyspnea, unspecified; G47.30 Sleep apnea, unspecified; M79.7 Fibromyalgia; R42 Dizziness and giddiness; J18.9 Pneumonia, unspecified organism; R91.8 Other nonspecific abnormal finding of lung field; J44.9 Chronic obstructive pulmonary disease, unspecified; M32.9 Systemic lupus erythematosus, unspecified; M19.90 Unspecified osteoarthritis, unspecified site; K21.9 Gastro-esophageal reflux disease without esophagitis; Z01.818 Encounter for other preprocedural examination
CPT/HCPCS: 50200; 77012; 85014; 85018; 85025; 85610; 85730; 88305; 88313; 88346; 88348; 88350; J2250; J3010

== ENCOUNTER → 2017-12-04 | Day surgery (SDC) | payer MEDICARE, OTHER ==
[~2017-12-04] MED LIST changes: +ASTE0.15 EACH NARE; -CYCL7.5T33 PO; +DEXT1TAB18 PO; +IOHEXOL 180 MG/ML 20 ML VIAL (for RAD DIAG) EPIDURAL ONE; +LIDOCAINE HCL 1% 30 ML VIAL NERV BLOCK ONE; +MAPA500T13 PO; +MYCO500 PO; +OMEP40CA2 PO; -PANT40TA3 PO; +PROPOFOL 200 MG/20 ML AMP IV ONE; +SODIUM CHLORIDE 0.9% 10 ML VIAL ONE; -TELM1TAB2 PO; +TELM40 PO; +diphenhydrAMINE HCL 50 MG/ML VIAL IV ONE; +methylPREDNISolone ACETATE 80 MG/ML VIAL ONE
--- NOTE | 2017-12-04 09:38 | M6 ---
cc: Yessenia Araujo MD DATE: 12/04/2017 DATE OF : 1945 PROCEDURE: Fluoroscopically-guided L5-S1 interlaminar epidural steroid injection. History and physical was completed and signed. Consent was signed. Procedure site was marked. Medications were listed and reconciled. Pain score was recorded. Allergies were noted. Time out was taken. Fluoroscopy time was recorded where applicable. Sedation was administered or directed by Dr. Araujo. The patient was given oxygen. The patient was monitored by a registered nurse. Total procedure time was greater than 15 minutes. PROCEDURE NOTE: IV was started. Blood pressure cuff, pulse oximeter and EKG were applied. The patient was placed in the prone position on a Waqar table, sedated with small amounts of propofol titrated to effect. Vital signs were monitored and remained stable throughout the procedure. The lumbar area was prepped with alcohol and draped with sterile drapes. Fluoroscopy was used to visualize the L5-S1 intralaminar space. The skin was infiltrated with 1% Xylocaine using a 27-gauge needle. Then, a 3-1/2 inch, 18-gauge Guevara needle was advanced using fluoroscopic guidance and the loss of resistance technique into the epidural space at L5-S1, slightly to the right of the midline. There was negative aspiration for blood or any other type of fluid and the patient was given 5 mL of 1% Xylocaine, 5 mL of Omnipaque and 80 mg of Kenalog. Following the procedure the patient was taken to the recovery room with stable vital signs. MD LUISANA Dickson/DARRELL , 09:29 AM , 09:37 AM
--- NOTE | 2017-12-04 09:49 | M6 ---
cc: Yessenia Araujo MD DATE: 12/04/2017 DATE OF : 1945. PROCEDURE: Lumbar epidurogram. An epidurogram was done on Ms. Ware today. Images were saved to her chart. The patient is having right lower extremity pain. She has a previous MRI showing a right-sided bulging disk at L5-S1. An epidurogram was done to determine if the injected medication actually flowed to the right L5 nerve root or to determine if there was any obstruction to flow. A 3.5 inch, 18-gauge Guevara needle was placed into the epidural space at L5-S1, slightly to the right of the midline and 5 mL of Omnipaque was injected and seen to spread in the right lateral recess at L5 and L4 in a cephalad direction. No Omnipaque dye was seen to spread through the L5-S1 neural foramen laterally. IMPRESSION: Good spread of the injected medication in the right lateral recess at L5, but no spread through the right L5 neural foramen. MD LUISANA Dickson/DARRELL , 09:31 AM , 09:48 AM
== END | disposition home or self-care (01) ==
LOC: PHSDC 08:19
PROVIDERS: ATTEND Pain Medicine Interventional Pain Medicine
DX: M54.5 Low back pain (principal); M79.661 Pain in right lower leg
CPT/HCPCS: 62323; 99152; J1040; J1200; Q9965